=== PATIENT | male | born 1940 | race Caucasian/White ===

== ENCOUNTER → 2018-02-12 15:21 | Outpatient (CLI) | payer MEDICARE, MEDICAID, SELFPAY ==
--- NOTE | 2018-02-12 15:21 | DT_ITS ---
This patient was seen during an EMR downtime February 05, 2018 - February 12, 2018. This patient may have a combination of paper and electronic documentation or all paper documentation. All documentation is viewable within the e-chart portion of [facility] for each patient visit.
[2018-02-12 17:37] LABS: Absolute Lymphocyte Count 2.73 X10^3/ul (0.83-4.51); Absolute Neutrophil Count 3.8 X10^3/uL (2.0-7.7); Basophil# 0.04 X10^3/uL; Basophil% 0.5 % (0-1); Eosinophil# 0.17 X10^3/uL; Eosinophils% 2.2 % (0-5); Hematocrit 51.1 % (40-54); Hemoglobin 17.3 g/dl (13.0-16.5); Lymphocyte # 2.73 X10^3/ul (4.0); Lymphocyte % 35.9 % (19-41); Mean Corp Hgb Conc 33.9 g/gl (32-36); Mean Corpuscular Hgb 33.1 pg (27.0-32.0); Mean Corpuscular Volume 97.7 fL (80-94); Mean Platelet Vol. 11.1 fl (6.2-12.0); Monocyte# 0.83 X10^3/uL; Monocyte% 10.9 % (0-10); Neutrophil # 3.83 X10^3/uL (2.7-7.7); Neutrophil % 50.4 % (47-70); Platelet Count 213 K/mm3 (150-450); RBC Distribution Width CV 12.3 % (11.6-14.6); RBC Distribution Width SD 44.3 fl (35.1-43.9); Red Blood Count 5.23 M/mm3 (4.6-6.2); White Blood Count 7.6 K/mm3 (4.4-11.0)
[2018-02-12 17:42] LABS: POSITIVE COUNT NO; POSITIVE DIFFERENTIAL NO; POSITIVE MORPHOLOGY NO
[2018-02-12 17:52] LABS: Vitamin D,25 Hydroxy 12.3 ng/mL (29.95-100.01)
[2018-02-12 18:02] LABS: ALB/GLOB Ratio 0.9 RATIO (0.9-2.4); AST(SGOT) 32 U/L (15-37); Alanine Aminotransfer ALT/SGPT 35 U/L (16-61); Albumin, Serum 3.7 g/dL (3.2-5.0); Alkaline Phosphatase 94 U/L (45-117); Anion Gap 10 (5-15); BUN 14 mg/dL (7-18); BUN/Creat Ratio 15.1 RATIO (10-20); Chloride 104 mmol/L (98-107); Cholesterol 162 mg/dL (200); Creatinine, Serum 0.92 mg/dL (0.70-1.30); EST Glomerular Filtration Rate 84 mL/min (>60); Est Glom Filt Rate - Afr Amer 101 mL/min (>60); Glucose 86 mg/dL (74-106); High Density Lipoprotein 42 mg/dL; Potassium 4.2 mmol/L (3.5-5.1); Protein, Total 7.7 g/dL (6.4-8.2); Sodium Level 141 mmol/L (136-145); Thyroid Stim Hormone (TSH) 0.61 uIU/mL (0.358-3.74); Triglycerides 240 mg/dL; Very Low Density Lipoprotein 48 mg/dL (5-40)
== END ==
PROVIDERS: Family Provider Family Medicine Geriatric Medicine; PCP Family Medicine Geriatric Medicine; Visit Provider Family Medicine Geriatric Medicine
DX: E55.9 Vitamin D deficiency, unspecified (principal); E78.4 Other hyperlipidemia; R53.83 Other fatigue
CPT/HCPCS: 36415; 80053; 80061; 82306; 84443; 85025

== ENCOUNTER → 2018-02-26 15:34 | Outpatient (CLI) | payer MEDICARE, SELFPAY ==
[2018-02-26 16:38] LABS: ALB/GLOB Ratio 0.9 RATIO (0.9-2.4); AST(SGOT) 27 U/L (15-37); Alanine Aminotransfer ALT/SGPT 29 U/L (16-61); Albumin, Serum 3.7 g/dL (3.2-5.0); Alkaline Phosphatase 112 U/L (45-117); Anion Gap 7 (5-15); BUN 8 mg/dL (7-18); BUN/Creat Ratio 8.4 RATIO (10-20); Calcium,Total 9.3 mg/dL (8.5-10.1); Chloride 103 mmol/L (98-107); Creatinine, Serum 0.96 mg/dL (0.70-1.30); EST Glomerular Filtration Rate 81 mL/min (>60); Est Glom Filt Rate - Afr Amer 97 mL/min (>60); Globulin 4.3 g/dL (2.2-4.2); Glucose 88 mg/dL (74-106); Potassium 3.8 mmol/L (3.5-5.1); Sodium Level 140 mmol/L (136-145)
[2018-02-26 16:46] LABS: Absolute Lymphocyte Count 2.41 X10^3/ul (0.83-4.51); Absolute Neutrophil Count 3.9 X10^3/uL (2.0-7.7); Basophil# 0.01 X10^3/uL; Basophil% 0.1 % (0-1); Eosinophil# 0.16 X10^3/uL; Eosinophils% 2.2 % (0-5); Hematocrit 50.1 % (40-54); Lymphocyte # 2.41 X10^3/ul (4.0); Lymphocyte % 33.1 % (19-41); Mean Corp Hgb Conc 33.9 g/gl (32-36); Mean Corpuscular Hgb 33.1 pg (27.0-32.0); Mean Corpuscular Volume 97.5 fL (80-94); Mean Platelet Vol. 11.3 fl (6.2-12.0); Monocyte# 0.78 X10^3/uL; Monocyte% 10.7 % (0-10); Neutrophil % 53.8 % (47-70); RBC Distribution Width CV 12.2 % (11.6-14.6); RBC Distribution Width SD 43.3 fl (35.1-43.9); Red Blood Count 5.14 M/mm3 (4.6-6.2); White Blood Count 7.3 K/mm3 (4.4-11.0)
[2018-02-26 16:48] LABS: Differential Indicated SCAN CRITERIA MET; POSITIVE COUNT YES; POSITIVE DIFFERENTIAL NO; POSITIVE MORPHOLOGY NO
[2018-02-26 17:05] LABS: Differential Comment SCANNED; Platelet Estimate ADEQUATE (ADEQ)
== END ==
PROVIDERS: Family Provider Family Medicine Geriatric Medicine; PCP Family Medicine Geriatric Medicine; Visit Provider Family Medicine Geriatric Medicine
DX: R06.02 Shortness of breath (principal); R60.9 Edema, unspecified
CPT/HCPCS: 36415; 80053; 83880; 85025

== ENCOUNTER 2018-02-28 17:35 | Observation (INO) | payer MEDICARE, MEDICAID, SELFPAY ==
[2018-02-28 17:37] VITALS: BP 140/80; PULSE 97; RESP 16; TEMP 36.5; O2SAT 98; BMI 29.3
--- NOTE | 2018-02-28 18:06 | EKG12_ITS ---
Test Reason : CP Blood Pressure : / mmHG Vent. Rate : 089 BPM Atrial Rate : 089 BPM P-R Int : 182 ms QRS Dur : 122 ms QT Int : 374 ms P-R-T Axes : 045 -17 119 degrees QTc Int : 455 ms Sinus rhythm with occasional Premature ventricular complexes Nonspecific T wave abnormality Abnormal ECG Confirmed by LUCIE JEAN BATPISTE, AEBBE ([id number]), editor news DUSTIN IRWIN ([id number]) on 03/02/2018 9:17:58 AM Referred By: DR. ESCOBAR Confirmed By:ABEBE FAULKNER MD
--- NOTE | 2018-02-28 18:06 | RAD_ITS ---
STUDY: X-RAY CHEST REASON FOR EXAM: Male, 78 years old. Shortness of breath TECHNIQUE: Frontal view of the chest COMPARISON: None. FINDINGS: The lungs are clear. There are no pleural effusions. There is no pneumothorax. The heart is normal in size. The visualized osseous structures are within normal limits. RAD/Chest 1 View (Portable) IMPRESSION: No acute thoracic pathology. Electronically Signed: Farooq Orlando, at 18:28 EDT Tel , Service support ,
--- NOTE | 2018-02-28 18:15 | ED.DCSUM_ITS ---
- ER Visit Summary Date of Service: 02/28/18 Chief Complaint: Difficulty urinating History of Present Illness: The patient is a 78 M presenting with difficulty urinating. Patient has been having lower extremity swelling for the past 2 weeks. He was seen by his primary care physician Dr. Earl on Monday. Blood work was performed. He does not have the results of these tests yet. He was started on Lasix and potassium chloride which he started yesterday. He was advised that he would have increasing urination. Since starting the medications he has not been able to urinate completely. He states he only has dribbling when he tries to urinate. He has dyspnea on exertion and generalized weakness. He is having trouble ambulating due to the swelling in his legs. He denies chest pain. Physical Examination: Vitals are stable. Patient is afebrile. Alert no acute distress. HEENT exam is unremarkable. Neck is supple. Lungs are clear and equal bilaterally. Heart is regular rate and rhythm. Abdomen is soft suprapubic tenderness no rebound or guarding. Extremities symmetric edema Skin is warm and dry. No focal neurologic deficit. Remainder of exam is unremarkable. Emergency Department Course and Treatment: Rosado catheter placed. Chest xray shows no acute process. EKG is sinus with PVCs, lateral T-wave inversion which is changed from previous in 2008. CBC unremarkable. Chemistries show potassium 3.4, glucose 114. Urinalysis unremarkable. Troponin is 0.096. BNP 44.5. His family states that he has had significant shortness of breath with exertion. Will discuss with the hospitalist. Disposition: Observation Impression: Peripheral edema, generalized weakness, indeterminate troponin This note was generated with [employer] dictation software. It may contain incorrect words, spelling, and punctuation that were not noted in review of the chart prior to signing ED Disposition - Plan for ED Patient: Chief Complaint: Complaint Referrals: Akshat Earl Chi, MD [Primary Care Provider] -
[2018-02-28 18:36] LABS: Bacteria 0 SEEN /hpf (None Seen); Mucous, Urine 0 SEEN /hpf (<or=2+); Red Blood Cells-Urine 0 SEEN /hpf (0-5); Squamous Epithelial Cells - UA 0 SEEN /hpf (0-5); White Blood Cells 0 SEEN /hpf (0-5)
[2018-02-28 18:38] LABS: Color, Urine Yellow (Yellow); Glucose, Dipstick Normal (Normal); Ketone-Dipstick Negative (Negative); Leukocyte Esterase-Dipstick Negative /ul (Negative); Nitrite-Dipstick Negative (Negative); Occult Blood-Urine Negative /ul (Negative); Protein-Dipstick Negative (Negative); Urine Bilirubin Dipstick Negative (Negative); Urine Clarity Clear (Clear); Urine Urobilinogen Normal (Normal)
[2018-02-28 18:43] LABS: Absolute Lymphocyte Count 1.75 X10^3/ul (0.83-4.51); Absolute Neutrophil Count 2.8 X10^3/uL (2.0-7.7); Basophil# 0.01 X10^3/uL; Basophil% 0.2 % (0-1); Eosinophils% 3.7 % (0-5); Hemoglobin 14.6 g/dl (13.0-16.5); Lymphocyte # 1.75 X10^3/ul (4.0); Lymphocyte % 32.6 % (19-41); Mean Corp Hgb Conc 33.2 g/gl (32-36); Mean Corpuscular Hgb 32.2 pg (27.0-32.0); Mean Corpuscular Volume 96.9 fL (80-94); Mean Platelet Vol. 9.9 fl (6.2-12.0); Monocyte# 0.56 X10^3/uL; Monocyte% 10.4 % (0-10); Neutrophil # 2.84 X10^3/uL (2.7-7.7); Neutrophil % 52.9 % (47-70); Platelet Count 224 K/mm3 (150-450); RBC Distribution Width CV 12.1 % (11.6-14.6); RBC Distribution Width SD 42.9 fl (35.1-43.9); Red Blood Count 4.54 M/mm3 (4.6-6.2); White Blood Count 5.4 K/mm3 (4.4-11.0)
[2018-02-28 18:45] LABS: POSITIVE COUNT NO; POSITIVE DIFFERENTIAL NO; POSITIVE MORPHOLOGY NO
[2018-02-28 18:54] LABS: Anion Gap 7 (5-15); BUN 9 mg/dL (7-18); BUN/Creat Ratio 9.8 RATIO (10-20); Calcium,Total 8.5 mg/dL (8.5-10.1); Chloride 102 mmol/L (98-107); Creatinine, Serum 0.92 mg/dL (0.70-1.30); EST Glomerular Filtration Rate 85 mL/min (>60); Est Glom Filt Rate - Afr Amer 102 mL/min (>60); Estimated Creatinine Clearance 58.75 ml/min; Glucose 114 mg/dL (74-106); Potassium 3.4 mmol/L (3.5-5.1); Sodium Level 140 mmol/L (136-145)
[2018-02-28 19:01] LABS: BNP,B-Type NATRIURETIC PEPTIDE 44.5 pg/mL (0-100)
[2018-02-28 19:40] VITALS: BP 126/80; PULSE 86; RESP 20; O2SAT 97
--- NOTE | 2018-02-28 19:57 | NURSING ---
Called ED hot metal charger, okay to bring patient to floor.
[2018-02-28 20:00] VITALS: O2SAT 97
[2018-02-28 20:15] VITALS: BMI 27.0
--- NOTE | 2018-02-28 20:18 | PCM.HP.STD ---
History of Present Illness Date of Admission: 02/28/18 Chief Complaint: Decreased urine output and leg edema The patient is a 78 year old M who presented to the emergency due to inability to urinate he also reports bilateral leg edema, he saw his primary care doctor Dr. Khan 2 days ago who placed him on Lasix but he still had difficulty urinating. in the emergency room the patient was found to have urinary retention with 500cc on urinary bladder scan, a case catheter was placed. Patient denies history of urinary retention or BPH. Regarding his bilateral edema, this is mild and he denies any shortness of breath associated with that. His BNP done in the emergency room is less than 45. Past Medical History Allergies No Known Allergies Allergy (Verified 02/28/18 17:44) Home Medications: Ambulatory Orders Medication Instructions Recorded Aspirin [Aspirin, Baby] 81 mg PO DAILY 02/28/18 Furosemide [Lasix] 20 mg PO DAILY 02/28/18 Galantamine HBr [Galantamine ER] 24 mg PO DAILY 02/28/18 Multivitamin [Daily Multiple 1 tab PO DAILY 02/28/18 Vitamin] Nortriptyline HCl [Nortriptyline 50 mg PO QHS 02/28/18 HCl] Potassium Chloride [K-Dur] 10 meq PO DAILY 02/28/18 Smoking Status: Never smoker VTE Information - Inpt Only VTE Present on Admission: No VTE Mechan Device Prophylaxis: SCD's VTE Pharm Prophylaxis ordered?: No - Physical Exam General: Alert, Oriented x3 HEENT: Atraumatic Neck: Supple Lungs: Clear to auscultation Cardiovascular: Regular rate, Normal S1, Normal S2 Abdomen: Bowel Sounds Present, Soft Extremities: No edema Neurological: Cranial nerves II-XII grossly intact, Neuro grossly intact, Motor Exam 5/5 strength throughout Vital Signs Temp Pulse Resp BP Pulse Ox 97.7 F L 86 20 H 126/80 H 97 02/28/18 17:37 02/28/18 19:40 02/28/18 19:40 02/28/18 19:40 02/28/18 19:40 Weight: 76 kg Body Mass Index (BMI) 27.0 Assessment/Plan 1. Acute urinary retention; this is likely due to bladder outlet obstruction from BPH, will start him on Flomax, we will also obtain bladder and kidney ultrasound. Voiding trial in 24 hours and possibly follow-up with a urologist as an outpatient. 2. Peripheral edema; I see no evidence of congestive by heart failure by exam and his BNP is normal. Echocardiogram would however be obtained. 3. Hypokalemia; induced by recent diuretic use, will place him on oral potassium chloride. 4. indeterminate troponin; will obtain serial cardiac enzymes and go from there. Code Visit OBSV E&M: 65512 Initial observation care L2
[2018-02-28 20:24] VITALS: BMI 27.0
[2018-02-28] MEDS: Nortriptyline 25 MG Capsule 50 MG PO (22:45)
[2018-02-28 22:51] VITALS: BP 159/93; PULSE 86; RESP 18; TEMP 36.5; O2SAT 99
[2018-02-28 22:59] VITALS: PULSE 86
[2018-03-01] VITALS (11 sets, daily range): BP systolic 122–139; BP diastolic 69–84; PULSE 82–110; RESP 16–18; TEMP 36.4–37.4; O2SAT 93–97
[2018-03-01 05:51] LABS: Hematocrit 45.2 % (40-54); Hemoglobin 15.5 g/dl (13.0-16.5); Mean Corp Hgb Conc 34.3 g/gl (32-36); Mean Corpuscular Volume 96.2 fL (80-94); Mean Platelet Vol. 10.2 fl (6.2-12.0); Platelet Count 224 K/mm3 (150-450); RBC Distribution Width CV 11.9 % (11.6-14.6); RBC Distribution Width SD 41.5 fl (35.1-43.9); White Blood Count 8.6 K/mm3 (4.4-11.0)
[2018-03-01 06:07] LABS: Anion Gap 6 (5-15); BUN 8 mg/dL (7-18); BUN/Creat Ratio 11.1 RATIO (10-20); Calcium,Total 8.7 mg/dL (8.5-10.1); Chloride 106 mmol/L (98-107); Creatinine, Serum 0.72 mg/dL (0.70-1.30); EST Glomerular Filtration Rate 111 mL/min (>60); Est Glom Filt Rate - Afr Amer 135 mL/min (>60); Estimated Creatinine Clearance 54.05 ml/min; Glucose 88 mg/dL (74-106); Potassium 3.8 mmol/L (3.5-5.1); Sodium Level 141 mmol/L (136-145)
[2018-03-01 06:21] LABS: Scan Indicated on CBC? Y/N NO
--- NOTE | 2018-03-01 09:19 | ECHOD_ITS ---
Reason For Study: ELEVATED TROPONIN Procedure This was a 2D Doppler, Color Flow transthoracic echocardiogram. Exam performed portable in patient room. Left Ventricle Normal LV size. Left ventricular systolic function is normal. The estimated ejection fraction is 53 %. No evidence for diastolic dysfunction. No regional wall motion abnormalities noted. Right Ventricle Normal RV size. Normal systolic function. Atria Normal left atrium. Normal right atrium. Mitral Valve Normal mitral valve. Tricuspid Valve Normal tricuspid valve. Aortic Valve Trisinus/trileaflet aortic valve. Pulmonic Valve Normal pulmonic valve. Great Vessels Normal aortic root. The pulmonary artery is normal size. Normal inferior vena cava. Pericardium/Pleural No pericardial effusion. MMode/2D Measurements & Calculations LVIDd: 4.2 cm FS: 22.8 % Ao root diam: 3.5 cm LVIDs: 3.3 cm LA dimension: 3.7 cm LAV(MOD-bp): 44.1 ml LA A4 area: 16.1 cm2 RA A4 area: 11.0 cm2 LAV(MOD-bp) Indexed: 23.8 ml/m2 LAV(MOD-sp2): 42.0 ml LAV(MOD-sp4): 44.5 ml Doppler Measurements & Calculations Ao V2 max: 106.9 cm/sec LV V1 max: 82.0 cm/sec PA V2 max: 85.3 cm/sec Ao max P.6 mmHg LV V1 max P.7 mmHg Interpretation Summary Normal LV size. Left ventricular systolic function is normal. The estimated ejection fraction is 53 %. No evidence for diastolic dysfunction. Ordering Physician: Deven Calderon Referring Physician: Akshat Earl Chi Performed By: Lianna Sánchez, JOANNE, RVT
[2018-03-01] MEDS: Aspirin 81 MG TAB.CHEW PO (10:00)
[2018-03-01] MEDS: Galantamine Hydrobromide 4 MG Tablet 12 MG PO ×2 (10:00→21:53)
[2018-03-01] MEDS: Enoxaparin 40 MG/0.4 ML Syringe SC (10:00)
--- NOTE | 2018-03-01 11:59 | VDLE_ITS ---
Reason For Study: swelling RIGHT LEFT GSV is normal. GSV is normal. CFV is compressible, spontaneous, phasic, CFV is compressible, spontaneous, phasic, competent and demonstrates normal competent, and demonstrates normal augmentation. augmentation. FV is compressible, spontaneous, phasic, FV is compressible, spontaneous, phasic, competent and demonstrates normal competent and demonstrates normal augmentation. augmentation. POP V is compressible, spontaneous, phasic, POP V is compressible, spontaneous, phasic, competent and demonstrates normal competent and demonstrates normal augmentation. augmentation. T/P Trunk is compressible. T/P Trunk is compressible. PTV is compressible. PTV is compressible. RT PerV is compressible. LT PerV is compressible. Procedure Exam performed portable in patient room. The exam was diagnostic. A preliminary report was called and/or faxed to the pt's RN. Interpretation Summary No evidence for acute deep venous thrombosis bilateral lower extremities with patent and compressible bilateral great saphenous veins. Ordering Physician: Deven Calderon Performed By: Lenny Covington RVT
--- NOTE | 2018-03-01 13:59 | PCM.PROGNOTE ---
<Deven Calderon - Last Filed: 03/01/18 13:59> Subjective: Pt does not remember why he is hear, did not remember having urinary retention, leg edema, or a case catheter placed in the ER. He currently has no CP, SOB, LH/Dizziness, leg edema appears resolved. He is tolerating the catheter without discomfort. - Physical Exam General: Alert, Oriented x3, Cooperative HEENT: Atraumatic, PERRLA, EOMI, Normocephalic Neck: Supple, No JVD, Negative Carotid Bruits Lungs: Clear to auscultation, Normal air movement Cardiovascular: Regular rate, No murmurs Abdomen: Bowel Sounds Present, Soft, Non Tender Extremities: No edema, Capillary Refill Less than 3 Seconds Skin: No rashes, No breakdown Musculoskeletal: No Tenderness to Palpation of Joints or Extremities Neurological: Cranial nerves II-XII grossly intact Psych/Mental Status: Normal Affect, Appropriate Vital Signs Temp Pulse Resp BP Pulse Ox 97.7 F L 82 18 135/82 H 93 03/01/18 09:47 03/01/18 11:22 03/01/18 09:47 03/01/18 09:47 03/01/18 09:47 Oxygen Delivery Method Room Air Weight: 76 kg Body Mass Index (BMI) 27.0 Intake and Output for Last 24 Hours 02/27/18 02/28/18 03/01/18 23:59 23:59 23:59 Intake Total 500 / 500 Output Total 1250 / 1250 750 / 750 Balance -1250 / -1250 -250 / -250 Laboratory Tests Past 24 Hrs 02/28/18 03/01/18 03/01/18 21:16 00:24 05:15 WBC RBC Hgb Hct MCV MCH MCHC RDW RDW Differential Plt Count MPV Sodium 141 Potassium 3.8 Chloride 106 Carbon Dioxide 29.0 Anion Gap 6 BUN 8 Creatinine 0.72 Estim Creat Clear Calc 54.05 Est GFR (MDRD) Af Amer 135 Est GFR (MDRD) Non-Af 111 BUN/Creatinine Ratio 11.1 Glucose 88 Calcium 8.7 Troponin I 0.097 H 0.102 H 03/01/18 05:15 WBC 8.6 RBC 4.70 Hgb 15.5 Hct 45.2 MCV 96.2 H MCH 33.0 H MCHC 34.3 RDW 11.9 RDW Differential 41.5 Plt Count 224 MPV 10.2 Sodium Potassium Chloride Carbon Dioxide Anion Gap BUN Creatinine Estim Creat Clear Calc Est GFR (MDRD) Af Amer Est GFR (MDRD) Non-Af BUN/Creatinine Ratio Glucose Calcium Troponin I Medical Necessity - Tobacco Use Smoking Status: Never smoker Tobacco Use: Chew Assessment/Plan 1. Acute urinary retention likely 2/2 BPH. flomax started. outpatient urology follow up. Will do voiding trial. Leg edema is resolved. BNP neg. lasix discontinued. 2. Indeterminate troponin - no CP/SOB. Peak at 0.102. Echo pending. Continue aspirin. CXR. EKG with nonspecific t wave changes. No events on tele. 3. Hypokalemia resolved 4. Dementia - continue galantamine. pt very confused. DVT ppx: lovenox DC planning: pending results of echo. if changes may need further cardiac workup This patient was seen by Deven Calderon PA-C under the supervision of Doctor Vanessa. <Oliver Mendez - Last Filed: 03/01/18 15:18> - Physical Exam General: Alert, Cooperative HEENT: Atraumatic, Normocephalic Lungs: Clear to auscultation, Normal air movement Cardiovascular: Regular rate, Regular Rhythm, Normal S1, Normal S2 Abdomen: Bowel Sounds Present, Soft, Non Tender, Non-Distended Extremities: No edema, No Calf Tenderness Skin: No rashes, No breakdown Psych/Mental Status: Normal Affect, Appropriate Vital Signs Temp Pulse Resp BP Pulse Ox 36.5 C L 82 18 135/82 H 93 03/01/18 09:47 03/01/18 11:22 03/01/18 09:47 03/01/18 09:47 03/01/18 09:47 Oxygen Delivery Method Room Air Weight: 76 kg Body Mass Index (BMI) 27.0 Intake and Output for Last 24 Hours 02/27/18 02/28/18 03/01/18 23:59 23:59 23:59 Intake Total 500 / 500 Output Total 1250 / 1250 750 / 750 Balance -1250 / -1250 -250 / -250 Laboratory Tests Past 24 Hrs 02/28/18 03/01/18 03/01/18 21:16 00:24 05:15 WBC RBC Hgb Hct MCV MCH MCHC RDW RDW Differential Plt Count MPV Sodium 141 Potassium 3.8 Chloride 106 Carbon Dioxide 29.0 Anion Gap 6 BUN 8 Creatinine 0.72 Estim Creat Clear Calc 54.05 Est GFR (MDRD) Af Amer 135 Est GFR (MDRD) Non-Af 111 BUN/Creatinine Ratio 11.1 Glucose 88 Calcium 8.7 Troponin I 0.097 H 0.102 H 03/01/18 05:15 WBC 8.6 RBC 4.70 Hgb 15.5 Hct 45.2 MCV 96.2 H MCH 33.0 H MCHC 34.3 RDW 11.9 RDW Differential 41.5 Plt Count 224 MPV 10.2 Sodium Potassium Chloride Carbon Dioxide Anion Gap BUN Creatinine Estim Creat Clear Calc Est GFR (MDRD) Af Amer Est GFR (MDRD) Non-Af BUN/Creatinine Ratio Glucose Calcium Troponin I Assessment/Plan Patient seen and examined independently. Data reviewed. I agree with the above note by the physician floral assistant. 1. Urinary retention: Likely due to BPH. . Started on Flomax Follow-up voiding trial and see if catheter can be removed. If catheter has to be replaced then would have the patient follow-up with urology down the road for attempting to remove it at a later point. 2. Elevated troponin Patient was without cardiac symptoms, therefore, I do not know why it was ever checked in the first place without any clear indication No prior troponins to compare to see if patient has chronically elevated troponins Check an echocardiogram and if evidence of cardiac dysfunction then may need to consult cardiology or perform stress test. Patient is on aspirin. Code Visit Inpatient E&M: 15379 Subs Hosp L2
--- NOTE | 2018-03-01 14:03 | PN_ITS ---
<Deven Calderon - Last Filed: 03/01/18 13:59> Subjective: Pt does not remember why he is hear, did not remember having urinary retention, leg edema, or a case catheter placed in the ER. He currently has no CP, SOB, LH /Dizziness, leg edema appears resolved. He is tolerating the catheter without discomfort. - Physical Exam General: Alert, Oriented x3, Cooperative HEENT: Atraumatic, PERRLA, EOMI, Normocephalic Neck: Supple, No JVD, Negative Carotid Bruits Lungs: Clear to auscultation, Normal air movement Cardiovascular: Regular rate, No murmurs Abdomen: Bowel Sounds Present, Soft, Non Tender Extremities: No edema, Capillary Refill Less than 3 Seconds Skin: No rashes, No breakdown Musculoskeletal: No Tenderness to Palpation of Joints or Extremities Neurological: Cranial nerves II-XII grossly intact Psych/Mental Status: Normal Affect, Appropriate Vital Signs Temp Pulse Resp BP Pulse Ox 97.7 F L 82 18 135/82 H 93 03/01/18 09:47 03/01/18 11:22 03/01/18 09:47 03/01/18 09:47 03/01/18 09:47 Oxygen Delivery Method Room Air Weight: 76 kg Body Mass Index (BMI) 27.0 Intake and Output for Last 24 Hours 02/27/18 02/28/18 03/01/18 23:59 23:59 23:59 Intake Total 500 / 500 Output Total 1250 / 1250 750 / 750 Balance -1250 / -1250 -250 / -250 Laboratory Tests Past 24 Hrs 02/28/18 03/01/18 03/01/18 21:16 00:24 05:15 WBC RBC Hgb Hct MCV MCH MCHC RDW RDW Differential Plt Count MPV Sodium 141 Potassium 3.8 Chloride 106 Carbon Dioxide 29.0 Anion Gap 6 BUN 8 Creatinine 0.72 Estim Creat Clear Calc 54.05 Est GFR (MDRD) Af Amer 135 Est GFR (MDRD) Non-Af 111 BUN/Creatinine Ratio 11.1 Glucose 88 Calcium 8.7 Troponin I 0.097 H 0.102 H 03/01/18 05:15 WBC 8.6 RBC 4.70 Hgb 15.5 Hct 45.2 MCV 96.2 H MCH 33.0 H MCHC 34.3 RDW 11.9 RDW Differential 41.5 Plt Count 224 MPV 10.2 Sodium Potassium Chloride Carbon Dioxide Anion Gap BUN Creatinine Estim Creat Clear Calc Est GFR (MDRD) Af Amer Est GFR (MDRD) Non-Af BUN/Creatinine Ratio Glucose Calcium Troponin I Medical Necessity - Tobacco Use Smoking Status: Never smoker Tobacco Use: Chew Assessment/Plan 1. Acute urinary retention likely 2/2 BPH. flomax started. outpatient urology follow up. Will do voiding trial. Leg edema is resolved. BNP neg. lasix discontinued. 2. Indeterminate troponin - no CP/SOB. Peak at 0.102. Echo pending. Continue aspirin. CXR. EKG with nonspecific t wave changes. No events on tele. 3. Hypokalemia resolved 4. Dementia - continue galantamine. pt very confused. DVT ppx: lovenox DC planning: pending results of echo. if changes may need further cardiac workup This patient was seen by Deven Calderon PA-C under the supervision of Doctor Vanessa. <Oliver Mendez - Last Filed: 03/01/18 15:18> - Physical Exam General: Alert, Cooperative HEENT: Atraumatic, Normocephalic Lungs: Clear to auscultation, Normal air movement Cardiovascular: Regular rate, Regular Rhythm, Normal S1, Normal S2 Abdomen: Bowel Sounds Present, Soft, Non Tender, Non-Distended Extremities: No edema, No Calf Tenderness Skin: No rashes, No breakdown Psych/Mental Status: Normal Affect, Appropriate Vital Signs Temp Pulse Resp BP Pulse Ox 36.5 C L 82 18 135/82 H 93 03/01/18 09:47 03/01/18 11:22 03/01/18 09:47 03/01/18 09:47 03/01/18 09:47 Oxygen Delivery Method Room Air Weight: 76 kg Body Mass Index (BMI) 27.0 Intake and Output for Last 24 Hours 02/27/18 02/28/18 03/01/18 23:59 23:59 23:59 Intake Total 500 / 500 Output Total 1250 / 1250 750 / 750 Balance -1250 / -1250 -250 / -250 Laboratory Tests Past 24 Hrs 02/28/18 03/01/18 03/01/18 21:16 00:24 05:15 WBC RBC Hgb Hct MCV MCH MCHC RDW RDW Differential Plt Count MPV Sodium 141 Potassium 3.8 Chloride 106 Carbon Dioxide 29.0 Anion Gap 6 BUN 8 Creatinine 0.72 Estim Creat Clear Calc 54.05 Est GFR (MDRD) Af Amer 135 Est GFR (MDRD) Non-Af 111 BUN/Creatinine Ratio 11.1 Glucose 88 Calcium 8.7 Troponin I 0.097 H 0.102 H 03/01/18 05:15 WBC 8.6 RBC 4.70 Hgb 15.5 Hct 45.2 MCV 96.2 H MCH 33.0 H MCHC 34.3 RDW 11.9 RDW Differential 41.5 Plt Count 224 MPV 10.2 Sodium Potassium Chloride Carbon Dioxide Anion Gap BUN Creatinine Estim Creat Clear Calc Est GFR (MDRD) Af Amer Est GFR (MDRD) Non-Af BUN/Creatinine Ratio Glucose Calcium Troponin I Assessment/Plan Patient seen and examined independently. Data reviewed. I agree with the above note by the physician agency sales management assistant. 1. Urinary retention: * Likely due to BPH. * . Started on Flomax * Follow-up voiding trial and see if catheter can be removed. If catheter has to be replaced then would have the patient follow-up with urology down the road for attempting to remove it at a later point. 2. Elevated troponin * Patient was without cardiac symptoms, therefore, I do not know why it was ever checked in the first place without any clear indication * No prior troponins to compare to see if patient has chronically elevated troponins * Check an echocardiogram and if evidence of cardiac dysfunction then may need to consult cardiology or perform stress test. * Patient is on aspirin. Code Visit Inpatient E&M: 23269 Subs Hosp L2
--- NOTE | 2018-03-01 16:49 | CHAPLAIN ---
Type of Pastoral Visit _x__ Initial Visit ___ Follow-up Visit ___ On-call Visit ___ General Patient Visit ___ Spiritual Assessment ___ Family Conference ___ Bereavement ___ Rapid Response ___ Code Blue ___ Other (describe below) Pastoral Care Referral From _x__ Patient ___ Family ___ Nurse ___ Physician ___ Block Chopper Hand ___ Eddy Current Inspector ___ Other (describe below) Sacrament/Intervention _x__ Active listening ___ Anointing ___ Adventism ___ Bereavement ___ Communion _x__ Eleni exploration ___ _x__ Life review ___ Prayer ___ Reconciliation ___ Sacrament of Sick __x_ Supportive presence ___ Wedding ___ Other (describe below) Pastoral Comments
[2018-03-01] MEDS: Tamsulosin HCl 0.4 MG Capsule PO (17:29)
--- NOTE | 2018-03-01 20:00 | EKG12_ITS ---
Test Reason : AM EKG Blood Pressure : / mmHG Vent. Rate : 096 BPM Atrial Rate : 096 BPM P-R Int : 186 ms QRS Dur : 124 ms QT Int : 366 ms P-R-T Axes : 035 -12 074 degrees QTc Int : 462 ms Normal sinus rhythm Nonspecific T wave abnormality Abnormal ECG When compared with ECG of 28-FEB-2018 18:43, MANUAL COMPARISON REQUIRED, DATA IS UNCONFIRMED Confirmed by LUCIE JEAN BAPTISTE, ABEBE ([id number]), video effects editor DUSTIN IRWIN ([id number]) on 03/02/2018 10:05:58 AM Referred By: DR ORTEGA Confirmed By:ABEBE FAULKNER MD
[2018-03-01] MEDS: Nortriptyline 25 MG Capsule 50 MG PO (21:53)
[2018-03-02] VITALS (12 sets, daily range): BP systolic 101–123; BP diastolic 58–69; PULSE 62–122; RESP 14–20; TEMP 36.6–37.2; O2SAT 92–96
[2018-03-02 06:22] LABS: Anion Gap 6 (5-15); BUN 15 mg/dL (7-18); BUN/Creat Ratio 18.1 RATIO (10-20); Calcium,Total 8.7 mg/dL (8.5-10.1); Chloride 105 mmol/L (98-107); Creatinine, Serum 0.83 mg/dL (0.70-1.30); EST Glomerular Filtration Rate 95 mL/min (>60); Est Glom Filt Rate - Afr Amer 115 mL/min (>60); Estimated Creatinine Clearance 65.12 ml/min; Glucose 104 mg/dL (74-106); Sodium Level 140 mmol/L (136-145)
[2018-03-02] MEDS: Galantamine Hydrobromide 4 MG Tablet 12 MG PO ×2 (10:05→22:53)
[2018-03-02] MEDS: Aspirin 81 MG TAB.CHEW PO (10:05)
[2018-03-02] MEDS: Enoxaparin 40 MG/0.4 ML Syringe SC (10:06)
--- NOTE | 2018-03-02 11:45 | CASEMGMT ---
VISHAL FARR NOTE: Discussed ROJAS form with pt. Signed copy given to pt. Offered to speak with who is not available at this time. Pt stated he would give his the ROJAS form when she comes in. If questions arise, contact CHIKA. Ulisses DALE RN, CM
--- NOTE | 2018-03-02 12:02 | CASEMGMT ---
PERRY spoke with patient, his , introduced self and role at [facility]. PERRY explained that therapy recommended he go somewhere for rehab or we could set up home health. Patient's said he is not going anywhere for rehab and they are not going to do home health because they can't afford it. She said they won't be able to afford this hospital stay. PERRY told her that his insurance will cover some of his stay. She said he is coded as outpatient so she will get stuck with the majority of the bill. The physician then walked into the room and PERRY stepped out. Plan: home with family Glo Ronda HALL
--- NOTE | 2018-03-02 13:03 | PCM.PN.HOSP ---
Subjective: states he is urinating, but not that well. Daughter is concerned that he is not seeing urology here and no answers about his feet swelling. Vitals/I&O's: Vital Signs Temp Pulse Resp BP Pulse Ox 36.6 C 122 H 20 H 123/69 H 92 03/02/18 09:51 03/02/18 11:19 03/02/18 09:51 03/02/18 09:51 03/02/18 09:51 Oxygen Delivery Method Room Air Weight: 76 kg Body Mass Index (BMI) 27.0 Intake and Output for Last 24 Hours 02/28/18 03/01/18 03/02/18 23:59 23:59 23:59 Intake Total 925 / 925 Output Total 1250 / 1250 1025 / 1025 220 / 220 Balance -1250 / -1250 -100 / -100 -220 / -220 General: Alert, No apparent distress HEENT: Atraumatic, Normocephalic Oral: Moist Mucosa Neck: No Nodes, Thyroid Normal Size and Texture Lungs: Clear to auscultation, Normal air movement, No rhonchi, No wheeze Cardiovascular: Regular rate, Regular Rhythm, Normal S1, Normal S2, No murmurs Abdomen: Bowel Sounds Present, Soft, Non Tender, Non-Distended Extremities: No Calf Tenderness, Edema - in feet, non-pitting. Psych/Mental Status: Flat Affect Laboratory Results 03/01/18 05:15: Sodium 141, Potassium 3.8, Chloride 106, Carbon Dioxide 29.0, Anion Gap 6, BUN 8, Creatinine 0.72, Estim Creat Clear Calc 54.05, Est GFR (MDRD) Af Amer 135, Est GFR (MDRD) Non-Af 111, BUN/Creatinine Ratio 11.1, Glucose 88, Calcium 8.7, Total Bilirubin Cancelled, AST Cancelled, ALT Cancelled, Alkaline Phosphatase Cancelled, Total Protein Cancelled, Albumin Cancelled, Globulin Cancelled, Albumin/Globulin Ratio Cancelled 03/02/18 05:35: Sodium 140, Potassium 4.0, Chloride 105, Carbon Dioxide 29.0, Anion Gap 6, BUN 15, Creatinine 0.83, Estim Creat Clear Calc 65.12, Est GFR (MDRD) Af Amer 115, Est GFR (MDRD) Non-Af 95, BUN/Creatinine Ratio 18.1, Glucose 104, Calcium 8.7, Total Bilirubin Pending, AST Pending, ALT Pending, Alkaline Phosphatase Pending, Total Protein Pending, Albumin Pending Current Medications Aspirin (Aspirin, Baby) 81 mg PO DAILYCM [facility] Last Admin: 03/02/18 10:05 Dose: 81 mg Enoxaparin Sodium (Lovenox) 40 mg SC DAILY@1000 [facility] Last Admin: 03/02/18 10:06 Dose: 40 mg Galantamine Hydrobromide (Razadyne) 12 mg PO BID [facility] Last Admin: 03/02/18 10:05 Dose: 12 mg Sodium Chloride () 250 mls @ 15 mls/hr IV .[id number] PRN PRN Reason: SALINE FLUSH Magnesium Hydroxide (Milk Of Magnesia) 30 ml PO DAILY PRN PRN PRN Reason: Constipation Nortriptyline HCl (Pamelor) 50 mg PO QHS [facility] Last Admin: 03/01/18 21:53 Dose: 50 mg Nutritional Formula (Lactose Free) (Ensure Enlive) 120 ml PO 4X/DAY [facility] Last Admin: 03/02/18 10:06 Dose: Not Given Sodium Chloride () 5 - 30 ml IV UD PRN PRN Reason: SALINE FLUSH Tamsulosin HCl (Flomax) 0.4 mg PO DAILY@1730 [facility] Last Admin: 03/01/18 17:29 Dose: 0.4 mg Medical Necessity - Tobacco Use Smoking Status: Never smoker Tobacco Use: Chew Assessment/Plan 1. Urinary retention: Likely due to BPH. Started on Flomax If catheter needs to be replaced, then patient will need to follow up with urology as outpt. 2. Elevated troponin Patient was without cardiac symptoms, therefore, I do not know why it was ever checked in the first place without any clear indication No prior troponins to compare to see if patient has chronically elevated troponins Check an echocardiogram and if evidence of cardiac dysfunction then may need to consult cardiology or perform stress test. Patient is on aspirin. Echo shows EF of 53% check stress test on ASA 3. Lower extremity edema Duplex negative involves only his feet check ABIs check albumin 4. Tachycardia appears sinus start metoprolol 5. DVT proph Lovenox Family at bedside. One woman (perhaps daughter) was quite belligerent demanding to know answers and saying she is not being told answers even as I tell her answers. Demands to have urology see him here. I informed her that in the absence of surgical necessity, urology can follow up as outpt--if needed. Code Visit Inpatient E&M: 21560 Subs Hosp L2
[2018-03-02 13:07] LABS: ALB/GLOB Ratio 0.7 RATIO (0.9-2.4); AST(SGOT) 26 U/L (15-37); Alanine Aminotransfer ALT/SGPT 21 U/L (16-61); Albumin, Serum 2.8 g/dL (3.2-5.0); Alkaline Phosphatase 102 U/L (45-117); Globulin 3.8 g/dL (2.2-4.2); Protein, Total 6.6 g/dL (6.4-8.2)
--- NOTE | 2018-03-02 13:13 | PN_ITS ---
Subjective: states he is urinating, but not that well. Daughter is concerned that he is not seeing urology here and no answers about his feet swelling. Vitals/I&O's: Vital Signs Temp Pulse Resp BP Pulse Ox 36.6 C 122 H 20 H 123/69 H 92 03/02/18 09:51 03/02/18 11:19 03/02/18 09:51 03/02/18 09:51 03/02/18 09:51 Oxygen Delivery Method Room Air Weight: 76 kg Body Mass Index (BMI) 27.0 Intake and Output for Last 24 Hours 02/28/18 03/01/18 03/02/18 23:59 23:59 23:59 Intake Total 925 / 925 Output Total 1250 / 1250 1025 / 1025 220 / 220 Balance -1250 / -1250 -100 / -100 -220 / -220 General: Alert, No apparent distress HEENT: Atraumatic, Normocephalic Oral: Moist Mucosa Neck: No Nodes, Thyroid Normal Size and Texture Lungs: Clear to auscultation, Normal air movement, No rhonchi, No wheeze Cardiovascular: Regular rate, Regular Rhythm, Normal S1, Normal S2, No murmurs Abdomen: Bowel Sounds Present, Soft, Non Tender, Non-Distended Extremities: No Calf Tenderness, Edema - in feet, non-pitting. Psych/Mental Status: Flat Affect Laboratory Results 03/01/18 05:15: Sodium 141, Potassium 3.8, Chloride 106, Carbon Dioxide 29.0, Anion Gap 6, BUN 8, Creatinine 0.72, Estim Creat Clear Calc 54.05, Est GFR (MDRD ) Af Amer 135, Est GFR (MDRD) Non-Af 111, BUN/Creatinine Ratio 11.1, Glucose 88 , Calcium 8.7, Total Bilirubin Cancelled, AST Cancelled, ALT Cancelled, Alkaline Phosphatase Cancelled, Total Protein Cancelled, Albumin Cancelled, Globulin Cancelled, Albumin/Globulin Ratio Cancelled 03/02/18 05:35: Sodium 140, Potassium 4.0, Chloride 105, Carbon Dioxide 29.0, Anion Gap 6, BUN 15, Creatinine 0.83, Estim Creat Clear Calc 65.12, Est GFR ( MDRD) Af Amer 115, Est GFR (MDRD) Non-Af 95, BUN/Creatinine Ratio 18.1, Glucose 104, Calcium 8.7, Total Bilirubin Pending, AST Pending, ALT Pending, Alkaline Phosphatase Pending, Total Protein Pending, Albumin Pending Current Medications Aspirin (Aspirin, Baby) 81 mg PO DAILYCM [facility] Last Admin: 03/02/18 10:05 Dose: 81 mg Enoxaparin Sodium (Lovenox) 40 mg SC DAILY@1000 [facility] Last Admin: 03/02/18 10:06 Dose: 40 mg Galantamine Hydrobromide (Razadyne) 12 mg PO BID [facility] Last Admin: 03/02/18 10:05 Dose: 12 mg Sodium Chloride () 250 mls @ 15 mls/hr IV .[id number] PRN PRN Reason: SALINE FLUSH Magnesium Hydroxide (Milk Of Magnesia) 30 ml PO DAILY PRN PRN PRN Reason: Constipation Nortriptyline HCl (Pamelor) 50 mg PO QHS [facility] Last Admin: 03/01/18 21:53 Dose: 50 mg Nutritional Formula (Lactose Free) (Ensure Enlive) 120 ml PO 4X/DAY [facility] Last Admin: 03/02/18 10:06 Dose: Not Given Sodium Chloride () 5 - 30 ml IV UD PRN PRN Reason: SALINE FLUSH Tamsulosin HCl (Flomax) 0.4 mg PO DAILY@1730 [facility] Last Admin: 03/01/18 17:29 Dose: 0.4 mg Medical Necessity - Tobacco Use Smoking Status: Never smoker Tobacco Use: Chew Assessment/Plan 1. Urinary retention: * Likely due to BPH. * Started on Flomax * If catheter needs to be replaced, then patient will need to follow up with urology as outpt. 2. Elevated troponin * Patient was without cardiac symptoms, therefore, I do not know why it was ever checked in the first place without any clear indication * No prior troponins to compare to see if patient has chronically elevated troponins * Check an echocardiogram and if evidence of cardiac dysfunction then may need to consult cardiology or perform stress test. * Patient is on aspirin. * Echo shows EF of 53% * check stress test * on ASA 3. Lower extremity edema * Duplex negative * involves only his feet * check ABIs * check albumin 4. Tachycardia * appears sinus * start metoprolol 5. DVT proph * Lovenox Family at bedside. One woman (perhaps daughter) was quite belligerent demanding to know answers and saying she is not being told answers even as I tell her answers. Demands to have urology see him here. I informed her that in the absence of surgical necessity, urology can follow up as outpt--if needed. Code Visit Inpatient E&M: 11662 Subs Hosp L2
[2018-03-02] MEDS: Metoprolol Tartrate 50 MG Tablet PO (13:44)
--- NOTE | 2018-03-02 19:04 | LEAS ---
Arterial Study - Arterial Study Arterial Study: Bilateral lower extremity noninvasive arterial exam at rest Right lower extremity The right PT and DP ankle-brachial indices at rest are 1.07 and 0.88 respectively. Doppler waveforms are biphasic. Volume pulse recordings not performed. Left lower extremity PT and DP ankle-brachial indices at rest are 1.22 and 1.07 respectively with a triphasic left posterior tibial and dorsalis pedis waveforms. Impression Right lower extremity demonstrates a normal PT resting ankle brachial index however Doppler waveforms are biphasic throughout both the right posterior tibial and dorsalis pedis suggesting at least a mild amount of occlusive disease. These findings would not be consistent with critical ischemia. The left lower extremity demonstrates normal resting indices and waveforms consistent with a normal finding. Lennox Hernandez M.D., F.A.C.S.
[2018-03-02] MEDS: Tamsulosin HCl 0.4 MG Capsule PO (19:25)
[2018-03-02] MEDS: Nortriptyline 25 MG Capsule 50 MG PO (22:53)
[2018-03-03] VITALS (8 sets, daily range): BP systolic 98–108; BP diastolic 62–72; PULSE 75–87; RESP 16–18; TEMP 36.7–37; O2SAT 93–97
--- NOTE | 2018-03-03 04:00 | NURSING ---
Pts called around 0145 this morning and told us that she was refusing to let her get the stress test done today. She was very sure about him not getting it done. Talked to MD about what she had said, since she is not her POA then he has to be the one to say he dosn't want it. Went in and talked to the pt about what he wants done, informed him of the benifits and he still decided he did not want the stress test done. Cancelled the stress test at this time.
[2018-03-03 06:06] LABS: Hematocrit 41.9 % (40-54); Hemoglobin 13.8 g/dl (13.0-16.5); Mean Corp Hgb Conc 32.9 g/gl (32-36); Mean Corpuscular Volume 97.2 fL (80-94); Mean Platelet Vol. 10.5 fl (6.2-12.0); Platelet Count 211 K/mm3 (150-450); RBC Distribution Width CV 11.9 % (11.6-14.6); RBC Distribution Width SD 42.6 fl (35.1-43.9); Red Blood Count 4.31 M/mm3 (4.6-6.2); White Blood Count 7.3 K/mm3 (4.4-11.0)
[2018-03-03 06:07] LABS: Scan Indicated on CBC? Y/N NO
[2018-03-03 06:23] LABS: Anion Gap 8 (5-15); BUN 16 mg/dL (7-18); BUN/Creat Ratio 19.5 RATIO (10-20); Calcium,Total 8.4 mg/dL (8.5-10.1); Chloride 106 mmol/L (98-107); Creatinine, Serum 0.82 mg/dL (0.70-1.30); EST Glomerular Filtration Rate 96 mL/min (>60); Est Glom Filt Rate - Afr Amer 117 mL/min (>60); Estimated Creatinine Clearance 65.92 ml/min; Glucose 116 mg/dL (74-106); Potassium 3.8 mmol/L (3.5-5.1); Sodium Level 142 mmol/L (136-145)
[2018-03-03] MEDS: Aspirin 81 MG TAB.CHEW PO (09:53)
[2018-03-03] MEDS: Galantamine Hydrobromide 4 MG Tablet 12 MG PO (09:53)
[2018-03-03] MEDS: Metoprolol Tartrate 50 MG Tablet PO (09:53)
--- NOTE | 2018-03-03 10:44 | PCM.PN.HOSP ---
Patient Problems: Active and Suspected Problems Urinary retention (Acute) Subjective: No new complaints. Vitals/I&O's: Vital Signs Temp Pulse Resp BP Pulse Ox 37.0 C 87 18 108/72 97 03/03/18 09:51 03/03/18 09:53 03/03/18 09:51 03/03/18 09:51 03/03/18 09:51 Oxygen Delivery Method Room Air Weight: 76 kg Body Mass Index (BMI) 27.0 Intake and Output for Last 24 Hours 03/01/18 03/02/18 03/03/18 23:59 23:59 23:59 Intake Total 925 / 925 240 / 240 Output Total 1025 / 1025 520 / 520 840 / 840 Balance -100 / -100 -280 / -280 -840 / -840 General: Alert, No apparent distress HEENT: Atraumatic, Normocephalic Oral: Moist Mucosa, No Gingival or Mucosal Lesions/ Ulcerations Neck: No Nodes, Thyroid Normal Size and Texture Lungs: Clear to auscultation, Normal air movement, No rhonchi, No wheeze Cardiovascular: Regular rate, Regular Rhythm, Normal S1, Normal S2, No murmurs Abdomen: Bowel Sounds Present, Soft, Non Tender, Non-Distended, No Hepato-splenomegaly Extremities: Edema - feet., - - DEVIN hose on Skin: No rashes, No breakdown Psych/Mental Status: Normal Affect, Appropriate Laboratory Results 03/01/18 05:15: Sodium 141, Potassium 3.8, Chloride 106, Carbon Dioxide 29.0, Anion Gap 6, BUN 8, Creatinine 0.72, Estim Creat Clear Calc 54.05, Est GFR (MDRD) Af Amer 135, Est GFR (MDRD) Non-Af 111, BUN/Creatinine Ratio 11.1, Glucose 88, Calcium 8.7, Total Bilirubin Cancelled, AST Cancelled, ALT Cancelled, Alkaline Phosphatase Cancelled, Total Protein Cancelled, Albumin Cancelled, Globulin Cancelled, Albumin/Globulin Ratio Cancelled 03/02/18 05:35: Sodium 140, Potassium 4.0, Chloride 105, Carbon Dioxide 29.0, Anion Gap 6, BUN 15, Creatinine 0.83, Estim Creat Clear Calc 65.12, Est GFR (MDRD) Af Amer 115, Est GFR (MDRD) Non-Af 95, BUN/Creatinine Ratio 18.1, Glucose 104, Calcium 8.7, Total Bilirubin 0.40, AST 26, ALT 21, Alkaline Phosphatase 102, Total Protein 6.6, Albumin 2.8 L, Globulin 3.8, Albumin/Globulin Ratio 0.7 L 03/03/18 05:15: Sodium 142, Potassium 3.8, Chloride 106, Carbon Dioxide 28.0, Anion Gap 8, BUN 16, Creatinine 0.82, Estim Creat Clear Calc 65.92, Est GFR (MDRD) Af Amer 117, Est GFR (MDRD) Non-Af 96, BUN/Creatinine Ratio 19.5, Glucose 116 H, Calcium 8.4 L 03/03/18 05:15: WBC 7.3, RBC 4.31 L, Hgb 13.8, Hct 41.9, MCV 97.2 H, MCH 32.0, MCHC 32.9, RDW 11.9, RDW Differential 42.6, Plt Count 211, MPV 10.5 03/03/18 05:15: PT 13.0, INR 1.0, APTT 33.0 Current Medications Aspirin (Aspirin, Baby) 81 mg PO DAILYCM [facility] Last Admin: 03/03/18 09:53 Dose: 81 mg Enoxaparin Sodium (Lovenox) 40 mg SC DAILY@1000 [facility] Last Admin: 03/03/18 09:55 Dose: Not Given Galantamine Hydrobromide (Razadyne) 12 mg PO BID [facility] Last Admin: 03/03/18 09:53 Dose: 12 mg Sodium Chloride () 250 mls @ 15 mls/hr IV .[id number] PRN PRN Reason: SALINE FLUSH Magnesium Hydroxide (Milk Of Magnesia) 30 ml PO DAILY PRN PRN PRN Reason: Constipation Metoprolol Tartrate (Lopressor (Beta Pattie)) 50 mg PO DAILY [facility] Last Admin: 03/03/18 09:53 Dose: 50 mg Nortriptyline HCl (Pamelor) 50 mg PO QHS [facility] Last Admin: 03/02/18 22:53 Dose: 50 mg Nutritional Formula (Lactose Free) (Ensure Enlive) 120 ml PO 4X/DAY [facility] Last Admin: 03/03/18 09:57 Dose: 120 ml Sodium Chloride () 5 - 30 ml IV UD PRN PRN Reason: SALINE FLUSH Tamsulosin HCl (Flomax) 0.4 mg PO DAILY@1730 [facility] Last Admin: 03/02/18 19:25 Dose: 0.4 mg Medical Necessity - Tobacco Use Smoking Status: Never smoker Tobacco Use: Chew Assessment/Plan All Active Problems Urinary retention (Acute) 1. Urinary retention: Likely due to BPH. Started on Flomax states he urinating very well. follow up with urology in 1-2 months. 2. Elevated troponin Patient was without cardiac symptoms, therefore, I do not know why it was ever checked in the first place without any clear indication No prior troponins to compare to see if patient has chronically elevated troponins Check an echocardiogram and if evidence of cardiac dysfunction then may need to consult cardiology or perform stress test. Patient is on aspirin. Echo shows EF of 53% patient and his declined stress test I told him I would like to know if he does have CAD with the stress, as if he does, it could lead to additional testing. He continues to decline and understands the risks 3. Lower extremity edema Duplex negative involves only his feet ABIs ok albumin low recommend supplements and keeping feet up when at rest (has dependent rubor) 4. Tachycardia appears sinus improved. DC home. Pt and family do not want rehab nor HHC.
--- NOTE | 2018-03-03 11:11 | PN_ITS ---
Patient Problems: Active and Suspected Problems Urinary retention (Acute) Subjective: No new complaints. Vitals/I&O's: Vital Signs Temp Pulse Resp BP Pulse Ox 37.0 C 87 18 108/72 97 03/03/18 09:51 03/03/18 09:53 03/03/18 09:51 03/03/18 09:51 03/03/18 09:51 Oxygen Delivery Method Room Air Weight: 76 kg Body Mass Index (BMI) 27.0 Intake and Output for Last 24 Hours 03/01/18 03/02/18 03/03/18 23:59 23:59 23:59 Intake Total 925 / 925 240 / 240 Output Total 1025 / 1025 520 / 520 840 / 840 Balance -100 / -100 -280 / -280 -840 / -840 General: Alert, No apparent distress HEENT: Atraumatic, Normocephalic Oral: Moist Mucosa, No Gingival or Mucosal Lesions/ Ulcerations Neck: No Nodes, Thyroid Normal Size and Texture Lungs: Clear to auscultation, Normal air movement, No rhonchi, No wheeze Cardiovascular: Regular rate, Regular Rhythm, Normal S1, Normal S2, No murmurs Abdomen: Bowel Sounds Present, Soft, Non Tender, Non-Distended, No Hepato- splenomegaly Extremities: Edema - feet., - - DEVIN hose on Skin: No rashes, No breakdown Psych/Mental Status: Normal Affect, Appropriate Laboratory Results 03/01/18 05:15: Sodium 141, Potassium 3.8, Chloride 106, Carbon Dioxide 29.0, Anion Gap 6, BUN 8, Creatinine 0.72, Estim Creat Clear Calc 54.05, Est GFR (MDRD ) Af Amer 135, Est GFR (MDRD) Non-Af 111, BUN/Creatinine Ratio 11.1, Glucose 88 , Calcium 8.7, Total Bilirubin Cancelled, AST Cancelled, ALT Cancelled, Alkaline Phosphatase Cancelled, Total Protein Cancelled, Albumin Cancelled, Globulin Cancelled, Albumin/Globulin Ratio Cancelled 03/02/18 05:35: Sodium 140, Potassium 4.0, Chloride 105, Carbon Dioxide 29.0, Anion Gap 6, BUN 15, Creatinine 0.83, Estim Creat Clear Calc 65.12, Est GFR ( MDRD) Af Amer 115, Est GFR (MDRD) Non-Af 95, BUN/Creatinine Ratio 18.1, Glucose 104, Calcium 8.7, Total Bilirubin 0.40, AST 26, ALT 21, Alkaline Phosphatase 102 , Total Protein 6.6, Albumin 2.8 L, Globulin 3.8, Albumin/Globulin Ratio 0.7 L 03/03/18 05:15: Sodium 142, Potassium 3.8, Chloride 106, Carbon Dioxide 28.0, Anion Gap 8, BUN 16, Creatinine 0.82, Estim Creat Clear Calc 65.92, Est GFR ( MDRD) Af Amer 117, Est GFR (MDRD) Non-Af 96, BUN/Creatinine Ratio 19.5, Glucose 116 H, Calcium 8.4 L 03/03/18 05:15: WBC 7.3, RBC 4.31 L, Hgb 13.8, Hct 41.9, MCV 97.2 H, MCH 32.0, MCHC 32.9, RDW 11.9, RDW Differential 42.6, Plt Count 211, MPV 10.5 03/03/18 05:15: PT 13.0, INR 1.0, APTT 33.0 Current Medications Aspirin (Aspirin, Baby) 81 mg PO DAILYCM [facility] Last Admin: 03/03/18 09:53 Dose: 81 mg Enoxaparin Sodium (Lovenox) 40 mg SC DAILY@1000 [facility] Last Admin: 03/03/18 09:55 Dose: Not Given Galantamine Hydrobromide (Razadyne) 12 mg PO BID [facility] Last Admin: 03/03/18 09:53 Dose: 12 mg Sodium Chloride () 250 mls @ 15 mls/hr IV .[id number] PRN PRN Reason: SALINE FLUSH Magnesium Hydroxide (Milk Of Magnesia) 30 ml PO DAILY PRN PRN PRN Reason: Constipation Metoprolol Tartrate (Lopressor (Beta Pattie)) 50 mg PO DAILY [facility] Last Admin: 03/03/18 09:53 Dose: 50 mg Nortriptyline HCl (Pamelor) 50 mg PO QHS [facility] Last Admin: 03/02/18 22:53 Dose: 50 mg Nutritional Formula (Lactose Free) (Ensure Enlive) 120 ml PO 4X/DAY [facility] Last Admin: 03/03/18 09:57 Dose: 120 ml Sodium Chloride () 5 - 30 ml IV UD PRN PRN Reason: SALINE FLUSH Tamsulosin HCl (Flomax) 0.4 mg PO DAILY@1730 [facility] Last Admin: 03/02/18 19:25 Dose: 0.4 mg Medical Necessity - Tobacco Use Smoking Status: Never smoker Tobacco Use: Chew Assessment/Plan All Active Problems Urinary retention (Acute) 1. Urinary retention: * Likely due to BPH. * Started on Flomax * states he urinating very well. * follow up with urology in 1-2 months. 2. Elevated troponin * Patient was without cardiac symptoms, therefore, I do not know why it was ever checked in the first place without any clear indication * No prior troponins to compare to see if patient has chronically elevated troponins * Check an echocardiogram and if evidence of cardiac dysfunction then may need to consult cardiology or perform stress test. * Patient is on aspirin. * Echo shows EF of 53% * patient and his declined stress test * I told him I would like to know if he does have CAD with the stress, as if he does, it could lead to additional testing. He continues to decline and understands the risks 3. Lower extremity edema * Duplex negative * involves only his feet * ABIs ok * albumin low * recommend supplements and keeping feet up when at rest (has dependent rubor) 4. Tachycardia * appears sinus * improved. DC home. Pt and family do not want rehab nor HHC.
--- NOTE | 2018-03-03 11:14 | PCM.DC ---
- Discharge Diagnoses Current Active Problems: Current Active and Chronic Problems Urinary retention (Acute) You will use the following diet at home:: Cardiac Your food should be the consistency of: Regular Your liquids should be the consistency of: Regular/Thin Discharge Activity: Return to Normal Activity Call your doctor if you observe: Fever of 101 or Higher, Shortness of breath, Fainting spells Allergies/Adverse Reactions: Allergies No Known Allergies Allergy (Verified 02/28/18 17:44) Medications to take at Discharge Aspirin [Aspirin, Baby] 81 mg PO DAILY 02/28/18 Furosemide [Lasix] 20 mg PO DAILY 02/28/18 Galantamine HBr [Galantamine ER] 24 mg PO DAILY 02/28/18 Multivitamin [Daily Multiple Vitamin] 1 tab PO DAILY 02/28/18 Nortriptyline HCl 50 mg PO QHS 02/28/18 Potassium Chloride [K-Dur] 10 meq PO DAILY 02/28/18 Ensure Enlive 120 ml PO TIDCM #90 liquid 03/03/18 Metoprolol Tartrate [Lopressor (beta marley)] 50 mg PO DAILY #60 tab 03/03/18 Tamsulosin HCl [Flomax] 0.4 mg PO DAILY@1730 #30 cap 03/03/18 The following prescriptions were given: Metoprolol Tartrate [Lopressor (beta marlye)] 50 mg PO DAILY #60 tab Tamsulosin HCl [Flomax] 0.4 mg PO DAILY@1730 #30 cap Ensure Enlive 120 ml PO TIDCM #90 liquid Primary Care Physician: Akshat Earl Chi, MD [Primary Care Provider] - Within 1 Week Please Follow Up With: Harvinder Ramierz MD When: 4-6 weeks Proposed Discharge Date: 03/03/18
--- NOTE | 2018-03-03 11:18 | DS.PCM_ITS ---
Discharge Date and Diagnosis - Problem List Patient Problems: Active and Suspected Problems Protein malnutrition (Acute) Elevated troponin (Acute) Tachycardia (Acute) Urinary retention (Acute) Date of Admission: 02/28/18 Date of Discharge: 03/03/18 - Primary Discharge Diagnosis Active and Suspected Problems Protein malnutrition (Acute) Elevated troponin (Acute) Tachycardia (Acute) Urinary retention (Acute) Hospital Course and Treatment Imaging Results: Clinical Impression(s) from Imaging Studies Chest X-Ray 02/28/18 18:06 IMPRESSION: No acute thoracic pathology. Electronically Signed: Farooq Orlando, at 18:28 EDT Tel , Service support , Operations: None Procedures: None Summary of Care Provided: The patient is a 78 year old M presents with urinary retention and lower extremity edema. 1. Urinary retention: * Likely due to BPH. * Started on Flomax * states he urinating very well. * follow up with urology in 1-2 months. 2. Elevated troponin * Patient was without cardiac symptoms, therefore, I do not know why it was ever checked in the first place without any clear indication * No prior troponins to compare to see if patient has chronically elevated troponins * Patient is on aspirin. * Echo shows EF of 53% * patient and his declined stress test * I told him I would like to know if he does have CAD with the stress, as if he does, it could lead to additional testing. He continues to decline and understands the risks 3. Lower extremity edema * Duplex negative * involves only his feet * ABIs ok * albumin low * recommend supplements and keeping feet up when at rest (has dependent rubor) 4. Tachycardia * appears sinus * improved with metoprolol. Home. He and family declined SNF and C. Follow up with PCP in 1-2 weeks.[] Discharge Diet: Low fat/ Low Cholesterol Discharge Activity: Return to Normal Activity Call your doctor if you observe: Fever of 101 or Higher, Shortness of breath, Fainting spells Home Medications: Medications to take at Discharge Aspirin [Aspirin, Baby] 81 mg PO DAILY 02/28/18 Furosemide [Lasix] 20 mg PO DAILY 02/28/18 Galantamine HBr [Galantamine ER] 24 mg PO DAILY 02/28/18 Multivitamin [Daily Multiple Vitamin] 1 tab PO DAILY 02/28/18 Nortriptyline HCl 50 mg PO QHS 02/28/18 Potassium Chloride [K-Dur] 10 meq PO DAILY 02/28/18 Ensure Enlive 120 ml PO TIDCM #90 liquid 03/03/18 Metoprolol Tartrate [Lopressor (beta marley)] 50 mg PO DAILY #60 tab 03/03/18 Tamsulosin HCl [Flomax] 0.4 mg PO DAILY@1730 #30 cap 03/03/18 Following Prescrptions Were Given to Patient: Metoprolol Tartrate [Lopressor (beta marley)] 50 mg PO DAILY #60 tab Tamsulosin HCl [Flomax] 0.4 mg PO DAILY@1730 #30 cap Ensure Enlive 120 ml PO TIDCM #90 liquid Primary Care Physician: Akshat Earl Chi, MD [Primary Care Provider] - Within 1 Week Please Follow Up With: Harvinder Ramirez MD When: 4-6 weeks Disposition: Home Minutes spent on discharge:: 35 Patient Condition:: Fair Medical Necessity - Tobacco Use Smoking Status: Never smoker Tobacco Use: Chew Meaningful Use Info Meaningful Use Diagnoses (Choose all that apply): None applicable Code Visit Inpatient E&M: 75790 Disch Hosp
== END 2018-03-03 11:26 | disposition home or self-care (01) ==
LOC: ED 18:34 → PCU 19:57
PROVIDERS: Admitting Provider Internal Medicine; Emergency Provider Emergency Medicine; Family Provider Family Medicine Geriatric Medicine; PCP Family Medicine Geriatric Medicine
DX: R33.9 Retention of urine, unspecified (principal); R60.0 Localized edema; R00.0 Tachycardia, unspecified; E46 Unspecified protein-calorie malnutrition; Z68.27 Body mass index [BMI] 27.0-27.9, adult; Z79.82 Long term (current) use of aspirin; Z79.899 Other long term (current) drug therapy; M79.89 Other specified soft tissue disorders; R06.09 Other forms of dyspnea; E87.6 Hypokalemia; F03.90 Unspecified dementia, unspecified severity, without behavioral disturbance, psychotic disturbance, mood disturbance, and anxiety; E44.0 Moderate protein-calorie malnutrition; R94.31 Abnormal electrocardiogram [ECG] [EKG]; R79.89 Other specified abnormal findings of blood chemistry; R53.1 Weakness; I49.3 Ventricular premature depolarization; R06.02 Shortness of breath; F17.220 Nicotine dependence, chewing tobacco, uncomplicated
CPT/HCPCS: 36415; 51702; 71045; 80048; 80053; 81001; 83880; 84484; 85025; 85027; 85610; 85730; 93005; 93306; 93922; 93970; 96372; 97110; 97162; 97165; 97802; 99218; 99285; 99406; A4216; G0378

== ENCOUNTER → 2018-03-08 16:41 | Outpatient (CLI) | payer MEDICARE, SELFPAY ==
[2018-03-08 17:39] LABS: Anion Gap 7 (5-15); BUN 13 mg/dL (7-18); BUN/Creat Ratio 15.3 RATIO (10-20); Calcium,Total 9.2 mg/dL (8.5-10.1); Chloride 106 mmol/L (98-107); Creatinine, Serum 0.85 mg/dL (0.70-1.30); EST Glomerular Filtration Rate 92 mL/min (>60); Est Glom Filt Rate - Afr Amer 112 mL/min (>60); Glucose 109 mg/dL (74-106); Potassium 4.4 mmol/L (3.5-5.1); Sodium Level 140 mmol/L (136-145)
== END ==
PROVIDERS: Family Provider Family Medicine Geriatric Medicine; PCP Family Medicine Geriatric Medicine; Visit Provider Family Medicine Geriatric Medicine
DX: R60.9 Edema, unspecified (principal)
CPT/HCPCS: 36415; 80048

== ENCOUNTER 2018-04-11 13:01 | Observation (INO) | payer MEDICARE, MEDICAID, SELFPAY ==
[2018-04-04 14:05] VITALS: BP 125/77; PULSE 66; RESP 18; TEMP 36.6; O2SAT 93; BMI 27.3
--- NOTE | 2018-04-04 14:11 | EKG12_ITS ---
Test Reason : Blood Pressure : / mmHG Vent. Rate : 059 BPM Atrial Rate : 059 BPM P-R Int : 190 ms QRS Dur : 116 ms QT Int : 420 ms P-R-T Axes : 055 -09 022 degrees QTc Int : 415 ms Sinus bradycardia Incomplete left bundle branch block Abnormal ECG Confirmed by VEDA JEAN BAPTISTE, OTTO ([id number]), subeditor ADRIANNE AL ([id number]) on 04/05/2018 12:02:19 PM Referred By: Harvinder Ramirez Confirmed By:OTTO MCCOLLUM MD
[2018-04-11] VITALS (9 sets, daily range): BP systolic 98–145; BP diastolic 60–93; PULSE 58–73; RESP 14–18; TEMP 36–36.9; O2SAT 94–100; BMI 27.3
--- NOTE | 2018-04-11 10:55 | PROS_PTH ---
PATIENT: BARBRA RAMIREZ LOC: [facility] U#:[id number] AGE/SX: 78/M ROOM: [facility] [place] RE04/11/[address]: Dr. Harvinder Ramirez MD : 1940 BED: 1 DIS: 04/12/2018 SPEC #: [id number] RECD: 04/11/18 15:17 STATUS: SHARLA GALLEGOS #: [id number] ELYSIA: 04/11/18 10:[address]: Harvinder Ramirez DEPT: SURGICAL PATHOLOGY RECD BY: Jc Vitale ENTERED: 04/12/18 10:14 SP TYPE: TURP OTHR DR: Dr. Akshat Earl MD Tissues: Prostate, NOS Procedures: Surgery Specimen Level IV HEADER OPERATION: Cysto, transurethral resection prostate PRE-OP DIAGNOSIS: BPH with obstruction TISSUE SUBMITTED: Prostate pieces MICROSCOPIC DIAGNOSIS Prostate pieces, TUR: Benign prostatic hyperplasia, predominantly stromal type. Chronic inflammation. SJ:watson 04/13/18 MICROSCOPIC DESCRIPTION Slides are reviewed. GROSS DESCRIPTION Received is one container labeled with the patient's name and designated prostate pieces. The specimen consists of multiple irregular fragments of pink-dennis, rubbery, soft tissue that in aggregate weigh 5 gm and measure in aggregate 3 x 3 x 1 cm. The entire specimen is submitted in four cassettes. / ILIANA:watson 04/12/18 TC:5 CPT: 78569
[2018-04-11] MEDS: Cefazolin 2 GM in 0.9% Normal Saline 100 ML IV (11:09)
--- NOTE | 2018-04-11 11:50 | OP.PCM_ITS ---
Report of Operation Date of Procedure: 04/11/18 Pre-Operative Diagnosis: BPH with urinary retention Post-Operative Diagnosis: Same Surgery/Procedure Performed:: Transurethral resection of the prostate Description of Surgical Findings:: 78-year-old male with history of retention of urine needing a catheter does have a slightly enlarged prostate for short in length today he comes to the operating room for a transurethral resection of the prostate to alleviate his bladder outlet obstruction. 78-year-old male with a history of BPH and obstruction has been in urinary retention requiring a catheter is not been able to urinate even with Flomax so this point organ to proceed with a transurethral resection of the prostate to alleviate the blockage. Reviewed with the patient has family the risks of surgery including the rare risk of incontinence, bleeding infection risk of anesthesia. Procedure note patient was taken back to the operating room after smooth induction of general anesthesia LMA was placed a MICHELLE Watson and anesthesiologist Dr. Pandya, the penis and testicles are prepped and draped in usual sterile fashion went into the bladder with a 26 Ukrainian continuous flow resectoscope and then switched over to the small loop on inspection he had very short length prostate with obstructive bladder was smooth no tumors or stones of the left and right uterus normal position I then pulled back to the sphincter identify the sphincter and then pulled back to the bladder neck I then start doing resection of the prostate muscle tissue a lateral tissue no median lobe resected the right lateral lobe of the prostate resected the left lobe of the prostate came back to the verumontanum and the sphincter area very carefully resected the apical tissue near the prostate I then elect out and got all the chips out of the bladder obtain hemostasis with pinpoint cautery. 22 Ukrainian catheter was placed into the bladder was put this on continuous bladder irrigation and the urine was clear patient medically is currently being reversed. Type of Anesthesia:: General Drains: 22fr 3 way - Admit VTE Documentation VTE Present on Admission: No VTE Mechan Device Prophylaxis: SCD's VTE Pharm Prophylaxis ordered?: No Reason prophylaxis not ordered:: Treatment Not Indicated
[2018-04-11] MEDS: 0.9% Normal Saline 1,000 ML 75 ML IV ×2 (12:41→22:03)
[2018-04-11] MEDS: Tamsulosin HCl 0.4 MG Capsule PO (17:13)
[2018-04-11] MEDS: Acetaminophen 325 MG Tablet PO (17:13)
[2018-04-11] MEDS: Docusate Sodium 100 MG Capsule PO (21:58)
[2018-04-11] MEDS: Ciprofloxacin 500 MG Tablet PO (21:58)
[2018-04-11] MEDS: Nortriptyline 25 MG Capsule 50 MG PO (21:58)
[2018-04-11] MEDS: Galantamine Hydrobromide 4 MG Tablet 12 MG PO (21:59)
[2018-04-12 02:53] VITALS: BP 135/83; PULSE 77; RESP 16; TEMP 36.9; O2SAT 100
--- NOTE | 2018-04-12 07:50 | DCINST_ITS ---
Discharge Diet: Light diet - advance as tolerated Call your doctor if your incision/area has: Continuous Slow Oozing, Sudden Increased Bleeding, Increased Pain/ Swelling, Increased Redness, Foul Smelling Discharge, Swelling at the incision site Instructions: Transurethral Resection of the Prostate (TURP): Home Recovery Allergies/Adverse Reactions: Allergies No Known Allergies Allergy (Verified 04/04/18 13:45) Medications to take at Discharge Aspirin [Aspirin, Baby] 81 mg PO DAILY 02/28/18 Furosemide [Lasix] 20 mg PO DAILY 02/28/18 Galantamine HBr [Galantamine ER] 24 mg PO DAILY 02/28/18 Multivitamin [Daily Multiple Vitamin] 1 tab PO DAILY 02/28/18 Nortriptyline HCl 50 mg PO QHS 02/28/18 Potassium Chloride [K-Dur] 10 meq PO DAILY 02/28/18 Ensure Enlive 120 ml PO TIDCM #90 liquid 03/03/18 Metoprolol Tartrate [Lopressor (beta marley)] 50 mg PO DAILY #60 tab 03/03/18 Tamsulosin HCl [Flomax] 0.4 mg PO DAILY@1730 #30 cap 03/03/18 Ciprofloxacin [Cipro] 500 mg PO BID #14 tab 04/12/18 The following prescriptions were given: Ciprofloxacin [Cipro] 500 mg PO BID #14 tab Primary Care Physician: Akshat Earl Chi, MD [Primary Care Provider] - Test Results: Test results from this visit will be discussed in further detail at your follow- up appointment, if applicable. Please Follow Up With: Harvinder Ramirez MD When: in 2 weeks, please call to make an appointment.
[2018-04-12 08:15] VITALS: BP 105/61; PULSE 80; RESP 18; TEMP 36.7; O2SAT 97
[2018-04-12 08:16] VITALS: PULSE 75
[2018-04-12] MEDS: Docusate Sodium 100 MG Capsule PO (08:16)
[2018-04-12] MEDS: Pantoprazole Sodium 40 MG Tablet PO (08:16)
[2018-04-12] MEDS: Metoprolol Tartrate 50 MG Tablet PO (08:16)
[2018-04-12] MEDS: Ciprofloxacin 500 MG Tablet PO (08:16)
[2018-04-12] MEDS: Furosemide 20 MG Tablet PO (08:17)
[2018-04-12] MEDS: Galantamine Hydrobromide 4 MG Tablet 12 MG PO (08:17)
[2018-04-12] MEDS: Multivitamins,Therapeutic Tablet 1 TABLET PO (08:18)
[2018-04-12 13:35] VITALS: BP 102/65; PULSE 66; RESP 18; TEMP 36.8; O2SAT 96
== END 2018-04-12 13:25 | disposition home or self-care (01) ==
LOC: SDC 16:43 → MS3 04-12 06:53
PROVIDERS: Admitting Provider Urology; Family Provider Family Medicine Geriatric Medicine; PCP Family Medicine Geriatric Medicine; Visit Provider Urology
PROC: 0V908ZZ Drainage of Prostate, Via Natural or Artificial Opening Endoscopic (ICD-10-PCS; CPT 52450; principal; 2018-04-11 10:45)
DX: N40.1 Benign prostatic hyperplasia with lower urinary tract symptoms (principal); N13.8 Other obstructive and reflux uropathy; Z79.899 Other long term (current) drug therapy; Z79.82 Long term (current) use of aspirin; I44.7 Left bundle-branch block, unspecified; R00.1 Bradycardia, unspecified; I10 Essential (primary) hypertension; G25.81 Restless legs syndrome
CPT/HCPCS: 00914; 52601; 88305; 93005; 96360; 96361; 99218; 99406; J7030; J7120; G0378; G0379; J2405

== ENCOUNTER → 2018-08-07 10:18 | Outpatient (CLI) | payer MEDICARE, MEDICAID, SELFPAY ==
[2018-08-07 12:30] LABS: Absolute Lymphocyte Count 3.13 X10^3/ul (0.83-4.51); Absolute Neutrophil Count 2.9 X10^3/uL (2.0-7.7); Basophil# 0.03 X10^3/uL; Basophil% 0.4 % (0-1); Eosinophil# 0.13 X10^3/uL; Eosinophils% 1.9 % (0-5); Hematocrit 47.6 % (40-54); Hemoglobin 15.9 g/dl (13.0-16.5); Lymphocyte # 3.13 X10^3/ul (4.0); Lymphocyte % 45.3 % (19-41); Mean Corp Hgb Conc 33.4 g/gl (32-36); Mean Corpuscular Hgb 31.9 pg (27.0-32.0); Mean Corpuscular Volume 95.6 fL (80-94); Mean Platelet Vol. 11.2 fl (6.2-12.0); Monocyte# 0.72 X10^3/uL; Monocyte% 10.4 % (0-10); Neutrophil # 2.89 X10^3/uL (2.7-7.7); Neutrophil % 41.9 % (47-70); Platelet Count 176 K/mm3 (150-450); RBC Distribution Width CV 12.9 % (11.6-14.6); RBC Distribution Width SD 44.7 fl (35.1-43.9); Red Blood Count 4.98 M/mm3 (4.6-6.2); White Blood Count 6.9 K/mm3 (4.4-11.0)
[2018-08-07 12:32] LABS: POSITIVE COUNT NO; POSITIVE DIFFERENTIAL NO; POSITIVE MORPHOLOGY NO
[2018-08-07 12:53] LABS: AST(SGOT) 37 U/L (15-37); Alanine Aminotransfer ALT/SGPT 42 U/L (16-61); Albumin, Serum 3.7 g/dL (3.2-5.0); Alkaline Phosphatase 82 U/L (45-117); Anion Gap 10 (5-15); BUN 14 mg/dL (7-18); BUN/Creat Ratio 15.9 RATIO (10-20); Calcium,Total 9.1 mg/dL (8.5-10.1); Chloride 106 mmol/L (98-107); Cholesterol 155 mg/dL (200); Creatinine, Serum 0.88 mg/dL (0.70-1.30); EST Glomerular Filtration Rate 88 mL/min (>60); Est Glom Filt Rate - Afr Amer 107 mL/min (>60); Globulin 3.8 g/dL (2.2-4.2); Glucose 83 mg/dL (74-106); High Density Lipoprotein 45 mg/dL; Potassium 3.8 mmol/L (3.5-5.1); Protein, Total 7.5 g/dL (6.4-8.2); Sodium Level 140 mmol/L (136-145); Triglycerides 217 mg/dL; Very Low Density Lipoprotein 43 mg/dL (5-40)
[2018-08-07 12:59] LABS: Vitamin D,25 Hydroxy 53.4 ng/mL (29.95-100.01)
== END ==
PROVIDERS: Family Provider Family Medicine Geriatric Medicine; PCP Family Medicine Geriatric Medicine; Visit Provider Family Medicine Geriatric Medicine
DX: E55.9 Vitamin D deficiency, unspecified (principal); E78.5 Hyperlipidemia, unspecified; R53.83 Other fatigue
CPT/HCPCS: 36415; 80053; 80061; 82306; 84443; 85025

== ENCOUNTER → 2019-02-14 08:43 | Outpatient (CLI) | payer MEDICARE, MEDICAID, SELFPAY ==
[2019-02-14 12:09] LABS: Absolute Lymphocyte Count 3.45 X10^3/ul (0.83-4.51); Absolute Neutrophil Count 3.1 X10^3/uL (2.0-7.7); Basophil# 0.02 X10^3/uL; Basophil% 0.3 % (0-1); Eosinophils% 2.6 % (0-5); Hematocrit 48.6 % (40-54); Hemoglobin 16.7 g/dl (13.0-16.5); Lymphocyte # 3.45 X10^3/ul (4.0); Lymphocyte % 44.5 % (19-41); Mean Corp Hgb Conc 34.4 g/gl (32-36); Mean Corpuscular Volume 93.1 fL (80-94); Mean Platelet Vol. 11.1 fl (6.2-12.0); Monocyte# 0.95 X10^3/uL; Monocyte% 12.2 % (0-10); Neutrophil # 3.12 X10^3/uL (2.7-7.7); Neutrophil % 40.1 % (47-70); Platelet Count 206 K/mm3 (150-450); RBC Distribution Width CV 12.2 % (11.6-14.6); RBC Distribution Width SD 41.5 fl (35.1-43.9); Red Blood Count 5.22 M/mm3 (4.6-6.2); White Blood Count 7.8 K/mm3 (4.4-11.0)
[2019-02-14 12:20] LABS: POSITIVE COUNT NO; POSITIVE DIFFERENTIAL NO; POSITIVE MORPHOLOGY NO
[2019-02-14 12:51] LABS: ALB/GLOB Ratio 0.8 RATIO (0.9-2.4); AST(SGOT) 43 U/L (15-37); Alanine Aminotransfer ALT/SGPT 53 U/L (16-61); Albumin, Serum 3.5 g/dL (3.2-5.0); Alkaline Phosphatase 93 U/L (45-117); Anion Gap 8 (5-15); BUN 16 mg/dL (7-18); BUN/Creat Ratio 16.9 RATIO (10-20); Calcium,Total 8.9 mg/dL (8.5-10.1); Chloride 106 mmol/L (98-107); Cholesterol 150 mg/dL (200); Creatinine, Serum 0.95 mg/dL (0.70-1.30); EST Glomerular Filtration Rate 81 mL/min (>60); Est Glom Filt Rate - Afr Amer 99 mL/min (>60); Globulin 4.2 g/dL (2.2-4.2); Glucose 89 mg/dL (74-106); High Density Lipoprotein 44 mg/dL; Potassium 3.7 mmol/L (3.5-5.1); Protein, Total 7.7 g/dL (6.4-8.2); Sodium Level 141 mmol/L (136-145); Thyroid Stim Hormone (TSH) 2.18 uIU/mL (0.358-3.74); Triglycerides 147 mg/dL; Very Low Density Lipoprotein 29 mg/dL (5-40)
[2019-02-14 15:00] LABS: Vitamin D,25 Hydroxy 22.5 ng/mL (29.95-100.01)
== END ==
PROVIDERS: Family Provider Family Medicine Geriatric Medicine; PCP Family Medicine Geriatric Medicine; Visit Provider Family Medicine Geriatric Medicine
DX: E55.9 Vitamin D deficiency, unspecified (principal); E78.5 Hyperlipidemia, unspecified; R53.83 Other fatigue
CPT/HCPCS: 36415; 80053; 80061; 82306; 84443; 85025

== ENCOUNTER → 2019-08-15 12:00 | Outpatient (CLI) | payer MEDICARE, MEDICAID, SELFPAY ==
[2018-05-16 10:14] VITALS: BMI 27.6
[2019-08-15 12:39] LABS: Absolute Neutrophil Count 3.5 X10^3/uL (2.0-7.7); Basophil# 0.05 X10^3/uL; Basophil% 0.6 % (0-1); Eosinophil# 0.17 X10^3/uL; Eosinophils% 1.9 % (0-5); Hematocrit 49.4 % (40-54); Hemoglobin 16.4 g/dL (13.0-16.5); Lymphocyte % 49.2 % (19-41); Mean Corp Hgb Conc 33.2 g/dL (32-36); Mean Corpuscular Volume 96.3 fL (80-94); Mean Platelet Vol. 11.3 fl (6.2-12.0); Monocyte# 0.73 X10^3/uL; Monocyte% 8.4 % (0-10); NRBC Flagged by Analyzer 0 % (0-5); Neutrophil # 3.47 X10^3/uL (2.7-7.7); Neutrophil % 39.7 % (47-70); Platelet Count 193 K/mm3 (150-450); RBC Distribution Width CV 12.6 % (11.6-14.6); RBC Distribution Width SD 45.3 fl (35.1-43.9); Red Blood Count 5.13 M/mm3 (4.6-6.2); White Blood Count 8.7 K/mm3 (4.4-11.0)
[2019-08-15 13:06] LABS: AST(SGOT) 37 U/L (15-37); Alanine Aminotransfer ALT/SGPT 62 U/L (16-61); Albumin, Serum 3.7 g/dL (3.2-5.0); Alkaline Phosphatase 80 U/L (45-117); Anion Gap 6 (5-15); BUN 16 mg/dL (7-18); Chloride 108 mmol/L (98-107); Cholesterol 170 mg/dL (200); Creatinine, Serum 0.89 mg/dL (0.70-1.30); EST Glomerular Filtration Rate 88 mL/min (>60); Est Glom Filt Rate - Afr Amer 106 mL/min (>60); Globulin 3.7 g/dL (2.2-4.2); Glucose 97 mg/dL (74-106); High Density Lipoprotein 46 mg/dL; Potassium 3.8 mmol/L (3.5-5.1); Protein, Total 7.4 g/dL (6.4-8.2); Sodium Level 139 mmol/L (136-145); Thyroid Stim Hormone (TSH) 1.43 uIU/mL (0.358-3.74); Triglycerides 241 mg/dL; Very Low Density Lipoprotein 48 mg/dL (5-40)
[2019-08-15 13:08] LABS: Vitamin D,25 Hydroxy 23.6 ng/mL (29.95-100.01)
== END ==
PROVIDERS: Family Provider Family Medicine Geriatric Medicine; PCP Family Medicine Geriatric Medicine; Visit Provider Family Medicine Geriatric Medicine
DX: E55.9 Vitamin D deficiency, unspecified (principal); E78.5 Hyperlipidemia, unspecified; R53.83 Other fatigue
CPT/HCPCS: 36415; 80053; 80061; 82306; 84443; 85025

== ENCOUNTER 2019-09-20 23:47 | Emergency (ER) | payer MEDICARE, MEDICAID, SELFPAY ==
[2019-09-20 23:48] VITALS: BP 153/94; PULSE 67; RESP 17; TEMP 36.7; O2SAT 98; BMI 29.9
--- NOTE | 2019-09-21 00:07 | ED.VIS.GEN ---
History of Present Illness Chief Complaint: GI Bleed Informant: Patient, Family Narrative: Patient stated he has a external hemorrhoid that started bleeding tonight. He had a normal bowel movement. He denies any symptoms other than he had some bright red blood after the BM. Stated he has had a remote colonoscopy with no problems. No diarrhea. He stated his bowel movement was not particularly hard but normal. He is on a baby aspirin. Current severity is mild. It stopped on its own. - Past Medical History (1) Elevated troponin Status: Chronic (2) Incomplete left bundle branch block Status: Chronic (3) Tachycardia Status: Chronic Past Medical History - Allergies and Home Meds Allergies/Adverse Reactions: Allergies No Known Allergies Allergy (Verified 09/20/19 23:48) Primary Care Physician: Akshat Earl Chi, MD [Primary Care Provider] - Prior records reviewed: Yes Past Medical History: - - See problem list Surgical History: - - Reviewed Lives: With Family Smoking Status: Never smoker Alcohol: None Drugs: None Review of Systems General: Denies: Chills, Fever, Sweats Eyes: Denies: Visual changes - bilaterally, Diplopia ENT: Denies: Rhinorrhea, Sore throat Cardiovascular: Denies: Chest pain, Palpitations Respiratory: Denies: Dyspnea, Cough, Dyspnea on exertion Gastrointestinal: Reports: - - External hemorrhoid bleeding. Denies: Abdominal pain, Nausea, Vomiting, Diarrhea, Melena, Hematochezia Genitourinary: Denies: Dysuria, Hematuria, Frequency Musculoskeletal: Denies: Back pain, Extremity Pain Skin: Denies: Rash, Wounds Neurological: Denies: Headache, Weakness, Numbness Physical Exam Vital Signs/Narrative: Vital Signs Temp Pulse Resp BP Pulse Ox 09/20/19 23:48 98.0 F 67 17 153/94 H 98 General: Well nourished, Well developed, No Acute Distress Head: Normocephalic, Atraumatic Eyes: Perrl, EOMI ENT: Moist mucous membranes, No rhinorrhea Neck: Supple, Nontender Cardiovascular: Regular rate, Regular rhythm, No murmurs Respiratory: No distress, CTA bilaterally, Chest nontender Abdomen: Soft, Nontender, Nondistended, Normal bowel sounds Rectal: Nontender, - - Patient has a nonthrombosed external hemorrhoid with a superficial blood clot where it was bleeding. No longer bleeding at this time. Back: Nontender, Normal Inspection Extremities: Nontender, No edema Skin: Normal color, No rash Neurological: Alert, Oriented x3, Cranial nerves II-XII grossly intact, Normal Strength, Normal Sensation Psychological: Normal affect, Normal Mood Diagnostic/Tx/Re-eval - Medical Decision Making Patient reassured. He has a nonthrombosed external hemorrhoid that was bleeding. He will use MiraLAX to keep his stool soft. He will use pressure if it bleeds again. I do not feel he needs further work-up. I do not feel this is internal. We will follow-up as an outpatient ED Disposition - Plan for ED Patient: Disposition: Home or Assisted Living Diagnosis: External hemorrhoid, bleeding Instructions: Treating Hemorrhoids: Self-Care Referrals: Akshat Earl Chi, MD [Primary Care Provider] -
[2019-09-21 00:16] VITALS: RESP 17
== END 2019-09-21 00:16 | disposition home or self-care (01) ==
PROVIDERS: Emergency Provider Emergency Medicine; PCP Family Medicine Geriatric Medicine
DX: K64.4 Residual hemorrhoidal skin tags (principal); I44.7 Left bundle-branch block, unspecified; Z79.82 Long term (current) use of aspirin; Z79.899 Other long term (current) drug therapy
CPT/HCPCS: 99282

== ENCOUNTER → 2020-02-17 10:15 | Outpatient (CLI) | payer MEDICARE, MEDICAID, SELFPAY ==
[2020-02-17 11:17] LABS: Absolute Lymphocyte Count 2.91 X10^3/uL (0.83-4.51); Basophil# 0.04 X10^3/uL; Basophil% 0.6 % (0-1); Eosinophil# 0.17 X10^3/uL; Eosinophils% 2.5 % (0-5); Hematocrit 49.3 % (40-54); Hemoglobin 16.3 g/dL (13.0-16.5); Lymphocyte # 2.91 X10^3/ul (4.0); Lymphocyte % 42.1 % (19-41); Mean Corp Hgb Conc 33.1 g/dL (32-36); Mean Corpuscular Hgb 32.6 pg (27.0-32.0); Mean Corpuscular Volume 98.6 fL (80-94); Mean Platelet Vol. 11.1 fl (6.2-12.0); Monocyte# 0.77 X10^3/uL; Monocyte% 11.1 % (0-10); NRBC Flagged by Analyzer 0 % (0-5); Neutrophil % 43.4 % (47-70); Platelet Count 168 K/mm3 (150-450); RBC Distribution Width CV 12.4 % (11.6-14.6); RBC Distribution Width SD 45.1 fl (35.1-43.9); White Blood Count 6.9 K/mm3 (4.4-11.0)
[2020-02-17 11:44] LABS: Vitamin D,25 Hydroxy 33.6 ng/mL
[2020-02-17 11:51] LABS: ALB/GLOB Ratio 0.9 RATIO (0.9-2.4); AST(SGOT) 54 U/L (15-37); Alanine Aminotransfer ALT/SGPT 80 U/L (16-61); Albumin, Serum 3.6 g/dL (3.2-5.0); Alkaline Phosphatase 94 U/L (45-117); Anion Gap 6 (5-15); BUN 8 mg/dL (7-18); BUN/Creat Ratio 9.6 RATIO (10-20); Calcium,Total 9.1 mg/dL (8.5-10.1); Chloride 108 mmol/L (98-107); Cholesterol 173 mg/dL (200); Creatinine, Serum 0.84 mg/dL (0.70-1.30); EST Glomerular Filtration Rate 94 mL/min (>60); Est Glom Filt Rate - Afr Amer 113 mL/min (>60); Globulin 3.8 g/dL (2.2-4.2); Glucose 136 mg/dL (74-106); High Density Lipoprotein 50 mg/dL; Potassium 3.8 mmol/L (3.5-5.1); Protein, Total 7.4 g/dL (6.4-8.2); Sodium Level 139 mmol/L (136-145); Thyroid Stim Hormone (TSH) 1.71 uIU/mL (0.358-3.74); Triglycerides 168 mg/dL; Very Low Density Lipoprotein 34 mg/dL (5-40)
== END ==
PROVIDERS: PCP Family Medicine Geriatric Medicine; Visit Provider Family Medicine Geriatric Medicine
DX: E55.9 Vitamin D deficiency, unspecified (principal); E78.5 Hyperlipidemia, unspecified; R53.83 Other fatigue
CPT/HCPCS: 36415; 80053; 80061; 82306; 84443; 85025

== ENCOUNTER → 2020-02-26 | Outpatient (CLI) | payer MEDICARE, MEDICAID, SELFPAY ==
--- NOTE | 2020-02-26 09:23 | US_ITS ---
STUDY: ABDOMINAL ULTRASOUND - RIGHT UPPER QUADRANT REASON FOR VISIT: Male, 80 years old ABNORMAL LIVER ENZYMES TECHNIQUE: Ultrasound evaluation of the right upper quadrant was performed with real-time and static lundy-scale imaging. TECHNICAL QUALITY: Limited. Examination limited by bowel gas. COMPARISON: None. FINDINGS: Liver: The liver measures 14.7 cm. There is increased echogenicity consistent with fatty infiltration. The bile ducts are within normal limits. There is hepatic color flow. The direction of portal flow is hepatopetal. There is no demonstrated mass lesion. Gallbladder: The gallbladder is not visualized. Common Bile Duct (C.B.D.): The common bile duct measures 5 mm. Pancreas: Normal size of the head, body and tail of the pancreas. There is normal echogenicity of the pancreas. There is no demonstrated pancreatic mass or cyst. Right Kidney: Normal size of the right kidney. The right kidney measures 9.8 x 6.2 x 5.1 cm. Normal renal cortex. The right cortex measures 1.0 cm. There is no demonstrated renal mass or cyst. There is no right hydronephrosis. US/Liver IMPRESSION: Diffuse fatty infiltration of the liver, no discrete lesion Gallbladder not visualized Sonographically normal pancreas and right kidney Electronically Signed: Marlon Ashley MD at 11:08 EDT , Service support ,
== END | disposition home or self-care (01) ==
LOC: US 09:21
PROVIDERS: PCP Family Medicine Geriatric Medicine; Referring Provider Family Medicine Geriatric Medicine; Visit Provider Family Medicine Geriatric Medicine
DX: R74.8 Abnormal levels of other serum enzymes (principal)
CPT/HCPCS: 76705

== ENCOUNTER → 2020-05-12 | Outpatient (CLI) | payer MEDICARE, MEDICAID, SELFPAY ==
[2020-05-12 10:21] LABS: AST(SGOT) 61 U/L (15-37); Alanine Aminotransfer ALT/SGPT 79 U/L (16-61); Albumin, Serum 3.6 g/dL (3.2-5.0); Alkaline Phosphatase 90 U/L (45-117); Anion Gap 7 (5-15); BUN 14 mg/dL (7-18); BUN/Creat Ratio 15.6 RATIO (10-20); Calcium,Total 8.7 mg/dL (8.5-10.1); Chloride 107 mmol/L (98-107); EST Glomerular Filtration Rate 87 mL/min (>60); Est Glom Filt Rate - Afr Amer 105 mL/min (>60); Globulin 3.6 g/dL (2.2-4.2); Glucose 109 mg/dL (74-106); Potassium 3.5 mmol/L (3.5-5.1); Protein, Total 7.2 g/dL (6.4-8.2); Sodium Level 139 mmol/L (136-145)
== END | disposition home or self-care (01) ==
LOC: LAB 09:34
PROVIDERS: PCP Family Medicine Geriatric Medicine; Referring Provider Family Medicine Geriatric Medicine; Visit Provider Family Medicine Geriatric Medicine
DX: K76.0 Fatty (change of) liver, not elsewhere classified (principal)
CPT/HCPCS: 36415; 80053

== ENCOUNTER → 2020-05-16 | Outpatient (CLI) | payer MEDICARE, MEDICAID, SELFPAY ==
--- NOTE | 2020-05-16 09:21 | US_ITS ---
STUDY: ABDOMINAL ULTRASOUND - RIGHT UPPER QUADRANT REASON FOR VISIT: Male, 80 years old ABNORMAL LABS TECHNIQUE: Ultrasound evaluation of the right upper quadrant was performed with real-time and static lundy-scale imaging. TECHNICAL QUALITY: Adequate. COMPARISON: Prior study of 02/26/2020 FINDINGS: Liver: The liver measures 16.0 cm. There is increased echogenicity consistent with fatty infiltration. The bile ducts are within normal limits. There is hepatic color flow. The direction of portal flow is hepatopetal. There is no demonstrated mass lesion. Gallbladder: The gallbladder is not visualized. Common Bile Duct (C.B.D.): The common bile duct measures 4.6 mm. Pancreas: Normal size of the head, body and tail of the pancreas. There is normal echogenicity of the pancreas. There is no demonstrated pancreatic mass or cyst. Right Kidney: Normal size of the right kidney. The right kidney measures 9.8 x 5.6 x 5.3 cm. Normal renal cortex. The right cortex measures 1.4 cm. There is no demonstrated renal mass or cyst. There is no right hydronephrosis. US/Abdomen Limited IMPRESSION: Echogenic liver suggestive of steatosis. Nonvisualization of the gallbladder. Electronically Signed: Alexander Silva MD at 20:00 EDT , Service support ,
== END | disposition home or self-care (01) ==
LOC: US 09:10
PROVIDERS: PCP Family Medicine Geriatric Medicine; Referring Provider Family Medicine Geriatric Medicine; Visit Provider Family Medicine Geriatric Medicine
DX: K76.9 Liver disease, unspecified (principal)
CPT/HCPCS: 76705

== ENCOUNTER → 2020-08-17 10:59 | Outpatient (CLI) | payer MEDICARE, MEDICAID, SELFPAY ==
[2020-08-17 11:43] LABS: Absolute Lymphocyte Count 2.72 X10^3/uL (0.83-4.51); Absolute Neutrophil Count 3.5 X10^3/uL (2.0-7.7); Basophil# 0.05 X10^3/uL; Basophil% 0.7 % (0-1); Differential Indicated SCAN CRITERIA MET; Eosinophil# 0.14 X10^3/uL; Hematocrit 50.7 % (40-54); Hemoglobin 17.2 g/dL (13.0-16.5); Lymphocyte # 2.72 X10^3/ul (4.0); Lymphocyte % 38.6 % (19-41); Mean Corp Hgb Conc 33.9 g/dL (32-36); Mean Corpuscular Hgb 33.1 pg (27.0-32.0); Mean Corpuscular Volume 97.7 fL (80-94); Monocyte# 0.65 X10^3/uL; Monocyte% 9.2 % (0-10); NRBC Flagged by Analyzer 0 % (0-5); Neutrophil # 3.45 X10^3/uL (2.7-7.7); Neutrophil % 49.1 % (47-70); POSITIVE COUNT YES; RBC Distribution Width CV 12.1 % (11.6-14.6); RBC Distribution Width SD 43.8 fl (35.1-43.9); Red Blood Count 5.19 M/mm3 (4.6-6.2)
[2020-08-17 11:56] LABS: Vitamin D,25 Hydroxy 31.9 ng/mL
[2020-08-17 12:02] LABS: AST(SGOT) 49 U/L (15-37); Alanine Aminotransfer ALT/SGPT 79 U/L (16-61); Albumin, Serum 3.6 g/dL (3.2-5.0); Alkaline Phosphatase 79 U/L (45-117); Anion Gap 4 (5-15); BUN 15 mg/dL (7-18); BUN/Creat Ratio 17.8 RATIO (10-20); Calcium,Total 9.1 mg/dL (8.5-10.1); Chloride 110 mmol/L (98-107); Cholesterol 155 mg/dL (200); Creatinine, Serum 0.84 mg/dL (0.70-1.30); EST Glomerular Filtration Rate 93 mL/min (>60); Est Glom Filt Rate - Afr Amer 113 mL/min (>60); Globulin 3.7 g/dL (2.2-4.2); Glucose 94 mg/dL (74-106); High Density Lipoprotein 47 mg/dL; Potassium 3.9 mmol/L (3.5-5.1); Protein, Total 7.3 g/dL (6.4-8.2); Sodium Level 140 mmol/L (136-145); Thyroid Stim Hormone (TSH) 1.22 uIU/mL (0.358-3.74); Triglycerides 159 mg/dL; Very Low Density Lipoprotein 32 mg/dL (5-40)
[2020-08-17 12:09] LABS: Platelet Estimate ADEQUATE (ADEQ)
== END ==
PROVIDERS: PCP Family Medicine Geriatric Medicine; Visit Provider Family Medicine Geriatric Medicine
DX: E55.9 Vitamin D deficiency, unspecified (principal); E78.5 Hyperlipidemia, unspecified; R53.83 Other fatigue
CPT/HCPCS: 36415; 80053; 80061; 82306; 84443; 85025

== ENCOUNTER → 2021-02-17 10:59 | Outpatient (CLI) | payer MEDICARE, MEDICAID, SELFPAY ==
[2021-02-17 12:09] LABS: Absolute Neutrophil Count 3.8 X10^3/uL (2.0-7.7); Basophil# 0.06 X10^3/uL; Basophil% 0.7 % (0-1); Eosinophil# 0.11 X10^3/uL; Eosinophils% 1.3 % (0-5); Hematocrit 52.9 % (40-54); Hemoglobin 17.5 g/dL (13.0-16.5); Lymphocyte % 44.2 % (19-41); Mean Corp Hgb Conc 33.1 g/dL (32-36); Mean Corpuscular Hgb 32.1 pg (27.0-32.0); Mean Corpuscular Volume 97.1 fL (80-94); Mean Platelet Vol. 11.3 fl (6.2-12.0); Monocyte# 0.81 X10^3/uL; Monocyte% 9.4 % (0-10); NRBC Flagged by Analyzer 0 % (0-5); Neutrophil # 3.79 X10^3/uL (2.7-7.7); Neutrophil % 44.2 % (47-70); Platelet Count 152 K/mm3 (150-450); RBC Distribution Width CV 12.4 % (11.6-14.6); Red Blood Count 5.45 M/mm3 (4.6-6.2); White Blood Count 8.6 K/mm3 (4.4-11.0)
[2021-02-17 12:45] LABS: ALB/GLOB Ratio 1.1 RATIO (0.9-2.4); AST(SGOT) 50 U/L (15-37); Alanine Aminotransfer ALT/SGPT 65 U/L (16-61); Alkaline Phosphatase 93 U/L (45-117); Anion Gap 11 (5-15); BUN 12 mg/dL (7-18); BUN/Creat Ratio 15.1 RATIO (10-20); Calcium,Total 9.2 mg/dL (8.5-10.1); Chloride 105 mmol/L (98-107); Cholesterol 188 mg/dL (200); EST Glomerular Filtration Rate 99 mL/min (>60); Est Glom Filt Rate - Afr Amer 120 mL/min (>60); Globulin 3.6 g/dL (2.2-4.2); Glucose 84 mg/dL (74-106); High Density Lipoprotein 49 mg/dL; Potassium 4.1 mmol/L (3.5-5.1); Protein, Total 7.6 g/dL (6.4-8.2); Sodium Level 140 mmol/L (136-145); Thyroid Stim Hormone (TSH) 1.26 uIU/mL (0.358-3.74); Triglycerides 179 mg/dL; Very Low Density Lipoprotein 36 mg/dL (5-40)
[2021-02-17 13:19] LABS: Vitamin D,25 Hydroxy 27.2 ng/mL
[2021-02-17 14:51] LABS: M R Staph aureus DNA By PCR Negative (Negative); Probe Check PASS; Specimen Processing Control PASS; Staph aureus DNA By PCR NEGATIVE (Negative)
== END ==
PROVIDERS: PCP Family Medicine Geriatric Medicine; Visit Provider Family Medicine Geriatric Medicine
DX: E55.9 Vitamin D deficiency, unspecified (principal); E78.5 Hyperlipidemia, unspecified; R53.83 Other fatigue; B95.62 Methicillin resistant Staphylococcus aureus infection as the cause of diseases classified elsewhere
CPT/HCPCS: 36415; 80053; 80061; 82306; 84443; 85025; 87070; 87077; 87186; 87205; 87640

== ENCOUNTER → 2021-08-18 11:55 | Outpatient (CLI) | payer MEDICARE, MEDICAID, SELFPAY ==
[2021-08-18 12:26] LABS: Absolute Lymphocyte Count 2.98 X10^3/uL (0.83-4.51); Absolute Neutrophil Count 4.5 X10^3/uL (2.0-7.7); Basophil# 0.04 X10^3/uL; Basophil% 0.5 % (0-1); Eosinophil# 0.13 X10^3/uL; Eosinophils% 1.5 % (0-5); Hematocrit 51.9 % (40-54); Hemoglobin 17.3 g/dL (13.0-16.5); Lymphocyte # 2.98 X10^3/ul (0.83-4.51); Mean Corp Hgb Conc 33.3 g/dL (32-36); Mean Corpuscular Hgb 31.7 pg (27.0-32.0); Mean Corpuscular Volume 95.2 fL (80-94); Mean Platelet Vol. 10.4 fl (6.2-12.0); Monocyte# 0.85 X10^3/uL; NRBC Flagged by Analyzer 0 % (0-5); Neutrophil # 4.48 X10^3/uL (2.7-7.7); Neutrophil % 52.5 % (47-70); Platelet Count 190 K/mm3 (150-450); RBC Distribution Width SD 42.5 fl (35.1-43.9); Red Blood Count 5.45 M/mm3 (4.6-6.2); White Blood Count 8.5 K/mm3 (4.4-11.0)
[2021-08-18 12:44] LABS: ALB/GLOB Ratio 0.9 RATIO (0.9-2.4); AST(SGOT) 34 U/L (15-37); Alanine Aminotransfer ALT/SGPT 44 U/L (16-61); Albumin, Serum 3.8 g/dL (3.2-5.0); Alkaline Phosphatase 91 U/L (45-117); Anion Gap 9 (5-15); BUN 16 mg/dL (7-18); BUN/Creat Ratio 16.5 RATIO (10-20); Calcium,Total 9.3 mg/dL (8.5-10.1); Chloride 105 mmol/L (98-107); Cholesterol 185 mg/dL (200); Creatinine, Serum 0.97 mg/dL (0.70-1.30); EST Glomerular Filtration Rate 79 mL/min (>60); Est Glom Filt Rate - Afr Amer 95 mL/min (>60); Globulin 4.1 g/dL (2.2-4.2); Glucose 104 mg/dL (74-106); High Density Lipoprotein 47 mg/dL; Potassium 4.2 mmol/L (3.5-5.1); Protein, Total 7.9 g/dL (6.4-8.2); Sodium Level 140 mmol/L (136-145); Thyroid Stim Hormone (TSH) 1.42 uIU/mL (0.358-3.74); Triglycerides 279 mg/dL; Very Low Density Lipoprotein 56 mg/dL (5-40)
== END ==
PROVIDERS: PCP Family Medicine Geriatric Medicine; Visit Provider Family Medicine Geriatric Medicine
DX: E78.5 Hyperlipidemia, unspecified (principal); E55.9 Vitamin D deficiency, unspecified; R53.83 Other fatigue
CPT/HCPCS: 36415; 80053; 80061; 82306; 84443; 85025

== ENCOUNTER → 2021-08-24 | Outpatient (CLI) | payer MEDICARE, MEDICAID, SELFPAY ==
--- NOTE | 2021-08-24 09:40 | LES_PTH ---
PATIENT: BARBRA RAMIREZ LOC: [facility] U#:[id number] AGE/SX: 81/M ROOM: RE08/24/[address]: Dr. Akshat Earl MD : 1940 BED: DIS: 08/24/2021 SPEC #: [id number] RECD: 08/24/21 12:59 STATUS: SHARLA ROSY #: [id number] ELYSIA: 08/24/21 09:[address]: Akshat Earl Chi DEPT: SURGICAL PATHOLOGY RECD BY: Esme Pabon Tissues: Skin of external ear, NOS Procedures: Surgery Specimen Level IV HEADER OPERATION: Ear biopsy PRE-OP DIAGNOSIS: Ear lesion TISSUE SUBMITTED: Ear MICROSCOPIC DIAGNOSIS Skin of ear, biopsy: Consistent with verrucoid keratosis with focal hyperparakeratosis and fibrinopurulent material. AM:watson 08/25/2021 MICROSCOPIC DESCRIPTION Slides are reviewed. GROSS DESCRIPTION Received is one container labeled with the patient's name and not further designated. The specimen consists of an irregular fragment of light dennis soft tissue measuring 0.5 x 0.2 x 0.2 cm. The specimen is totally submitted in one cassette. / AM:watson 08/24/21 TC:2 CPT: 95653
== END | disposition home or self-care (01) ==
PROVIDERS: PCP Family Medicine Geriatric Medicine; Visit Provider Family Medicine Geriatric Medicine
DX: L98.9 Disorder of the skin and subcutaneous tissue, unspecified (principal)
CPT/HCPCS: 88305

== ENCOUNTER → 2022-02-21 | Outpatient (CLI) | payer MEDICARE, MEDICAID, SELFPAY ==
[2022-02-21 12:53] LABS: Absolute Lymphocyte Count 4.13 X10^3/uL (0.83-4.51); Absolute Neutrophil Count 3.8 X10^3/uL (2.0-7.7); Basophil# 0.05 X10^3/uL; Basophil% 0.5 % (0-1); Eosinophil# 0.23 X10^3/uL; Eosinophils% 2.5 % (0-5); Hematocrit 46.9 % (40-54); Lymphocyte # 4.13 X10^3/ul (0.83-4.51); Lymphocyte % 45.2 % (19-41); Mean Corp Hgb Conc 34.1 g/dL (32-36); Mean Corpuscular Hgb 32.9 pg (27.0-32.0); Mean Corpuscular Volume 96.3 fL (80-94); Mean Platelet Vol. 11.3 fl (6.2-12.0); Monocyte# 0.93 X10^3/uL; Monocyte% 10.2 % (0-10); NRBC Flagged by Analyzer 0 % (0-5); Neutrophil # 3.77 X10^3/uL (2.7-7.7); Neutrophil % 41.3 % (47-70); Platelet Count 195 K/mm3 (150-450); RBC Distribution Width CV 12.5 % (11.6-14.6); RBC Distribution Width SD 44.6 fl (35.1-43.9); Red Blood Count 4.87 M/mm3 (4.6-6.2); White Blood Count 9.1 K/mm3 (4.4-11.0)
[2022-02-21 13:06] LABS: Vitamin D,25 Hydroxy 39.2 ng/mL
[2022-02-21 13:38] LABS: ALB/GLOB Ratio 0.9 RATIO (0.9-2.4); AST(SGOT) 48 U/L (15-37); Alanine Aminotransfer ALT/SGPT 38 U/L (16-61); Albumin, Serum 3.4 g/dL (3.2-5.0); Alkaline Phosphatase 85 U/L (45-117); Anion Gap 7 (5-15); BUN 12 mg/dL (7-18); BUN/Creat Ratio 15.5 RATIO (10-20); Calcium,Total 9.3 mg/dL (8.5-10.1); Chloride 106 mmol/L (98-107); Cholesterol 155 mg/dL (200); Creatinine, Serum 0.77 mg/dL (0.70-1.30); EST Glomerular Filtration Rate 102 mL/min (>60); Est Glom Filt Rate - Afr Amer 124 mL/min (>60); Globulin 3.9 g/dL (2.2-4.2); Glucose 76 mg/dL (74-106); High Density Lipoprotein 47 mg/dL; Potassium 3.9 mmol/L (3.5-5.1); Protein, Total 7.3 g/dL (6.4-8.2); Sodium Level 137 mmol/L (136-145); Thyroid Stim Hormone (TSH) 1.38 uIU/mL (0.358-3.74); Triglycerides 192 mg/dL; Very Low Density Lipoprotein 38 mg/dL (5-40)
== END | disposition home or self-care (01) ==
LOC: POLAB3 09:37
PROVIDERS: PCP Family Medicine Geriatric Medicine; Visit Provider Family Medicine Geriatric Medicine
DX: R53.83 Other fatigue (principal); E78.5 Hyperlipidemia, unspecified; E55.9 Vitamin D deficiency, unspecified
CPT/HCPCS: 36415; 80053; 80061; 82306; 84443; 85025

== ENCOUNTER → 2022-08-22 | Outpatient (CLI) | payer MEDICARE, MEDICAID, SELFPAY ==
[2022-08-22 13:10] LABS: Absolute Lymphocyte Count 3.54 X10^3/uL (0.83-4.51); Absolute Neutrophil Count 3.8 X10^3/uL (2.0-7.7); Basophil# 0.06 X10^3/uL; Basophil% 0.7 % (0-1); Eosinophil# 0.26 X10^3/uL; Eosinophils% 3.1 % (0-5); Hematocrit 50.9 % (40-54); Hemoglobin 16.7 g/dL (13.0-16.5); Lymphocyte # 3.54 X10^3/ul (0.83-4.51); Lymphocyte % 41.6 % (19-41); Mean Corp Hgb Conc 32.8 g/dL (32-36); Mean Corpuscular Hgb 32.1 pg (27.0-32.0); Mean Corpuscular Volume 97.9 fL (80-94); Mean Platelet Vol. 11.8 fl (6.2-12.0); Monocyte# 0.88 X10^3/uL; Monocyte% 10.3 % (0-10); NRBC Flagged by Analyzer 0 % (0-5); Neutrophil # 3.75 X10^3/uL (2.7-7.7); Neutrophil % 44.1 % (47-70); Platelet Count 182 K/mm3 (150-450); RBC Distribution Width CV 12.3 % (11.6-14.6); RBC Distribution Width SD 44.6 fl (35.1-43.9); White Blood Count 8.5 K/mm3 (4.4-11.0)
[2022-08-22 13:25] LABS: Vitamin D,25 Hydroxy 27.9 ng/mL
[2022-08-22 13:37] LABS: ALB/GLOB Ratio 1.1 RATIO (0.9-2.4); AST(SGOT) 29 U/L (15-37); Alanine Aminotransfer ALT/SGPT 41 U/L (16-61); Albumin, Serum 3.6 g/dL (3.2-5.0); Alkaline Phosphatase 80 U/L (45-117); Anion Gap 9 (5-15); BUN 12 mg/dL (7-18); BUN/Creat Ratio 14.1 RATIO (10-20); Calcium,Total 9.1 mg/dL (8.5-10.1); Chloride 106 mmol/L (98-107); Cholesterol 163 mg/dL (200); Creatinine, Serum 0.85 mg/dL (0.70-1.30); EST Glomerular Filtration Rate 91 mL/min (>60); Est Glom Filt Rate - Afr Amer 110 mL/min (>60); Globulin 3.4 g/dL (2.2-4.2); Glucose 114 mg/dL (74-106); High Density Lipoprotein 46 mg/dL; Sodium Level 139 mmol/L (136-145); Thyroid Stim Hormone (TSH) 1.57 uIU/mL (0.358-3.74); Triglycerides 183 mg/dL; Very Low Density Lipoprotein 37 mg/dL (5-40)
== END | disposition home or self-care (01) ==
LOC: POLAB3 11:01
PROVIDERS: PCP Family Medicine Geriatric Medicine; Visit Provider Family Medicine Geriatric Medicine
DX: R53.83 Other fatigue (principal); E78.5 Hyperlipidemia, unspecified; E55.9 Vitamin D deficiency, unspecified
CPT/HCPCS: 36415; 80053; 80061; 82306; 84443; 85025

== ENCOUNTER → 2023-02-23 | Outpatient (CLI) | payer MEDICARE, MEDICAID, SELFPAY ==
[2023-02-23 15:47] LABS: Absolute Lymphocyte Count 4.02 X10^3/uL (0.83-4.51); Basophil# 0.05 X10^3/uL; Basophil% 0.6 % (0-1); Eosinophil# 0.14 X10^3/uL; Eosinophils% 1.6 % (0-5); Hematocrit 48.9 % (40-54); Hemoglobin 16.7 g/dL (13.0-16.5); Lymphocyte # 4.02 X10^3/ul (0.83-4.51); Lymphocyte % 44.6 % (19-41); Mean Corp Hgb Conc 34.2 g/dL (32-36); Mean Corpuscular Volume 96.6 fL (80-94); Mean Platelet Vol. 11.1 fl (6.2-12.0); Monocyte% 8.9 % (0-10); NRBC Flagged by Analyzer 0 % (0-5); Neutrophil # 3.99 X10^3/uL (2.7-7.7); Neutrophil % 44.1 % (47-70); Platelet Count 176 K/mm3 (150-450); RBC Distribution Width CV 12.4 % (11.6-14.6); RBC Distribution Width SD 43.8 fl (35.1-43.9); Red Blood Count 5.06 M/mm3 (4.6-6.2)
[2023-02-23 16:42] LABS: Vitamin D,25 Hydroxy 46.5 ng/mL
[2023-02-23 16:51] LABS: AST(SGOT) 31 U/L (15-37); Alanine Aminotransfer ALT/SGPT 38 U/L (16-61); Albumin, Serum 3.6 g/dL (3.2-5.0); Alkaline Phosphatase 86 U/L (45-117); Anion Gap 7 (5-15); BUN 11 mg/dL (7-18); Calcium,Total 8.8 mg/dL (8.5-10.1); Chloride 108 mmol/L (98-107); Cholesterol 167 mg/dL (200); Creatinine, Serum 0.78 mg/dL (0.70-1.30); EST Glomerular Filtration Rate 100 mL/min (>60); Est Glom Filt Rate - Afr Amer 121 mL/min (>60); Globulin 3.6 g/dL (2.2-4.2); Glucose 86 mg/dL (74-106); High Density Lipoprotein 49 mg/dL; Potassium 3.6 mmol/L (3.5-5.1); Protein, Total 7.2 g/dL (6.4-8.2); Sodium Level 141 mmol/L (136-145); Thyroid Stim Hormone (TSH) 1.24 uIU/mL (0.358-3.74); Triglycerides 157 mg/dL; Very Low Density Lipoprotein 31 mg/dL (5-40)
== END | disposition home or self-care (01) ==
LOC: LAB 14:04
PROVIDERS: PCP Family Medicine Geriatric Medicine; Referring Provider Family Medicine Geriatric Medicine; Visit Provider Family Medicine Geriatric Medicine
DX: I10 Essential (primary) hypertension (principal); E55.9 Vitamin D deficiency, unspecified
CPT/HCPCS: 36415; 80053; 80061; 82306; 84443; 85025

== ENCOUNTER → 2023-09-07 | Outpatient (CLI) | payer MEDICARE, MEDICAID, SELFPAY ==
[2023-09-07 17:44] LABS: Absolute Lymphocyte Count 2.88 X10^3/uL (0.83-4.51); Absolute Neutrophil Count 3.7 X10^3/uL (2.0-7.7); Basophil# 0.04 X10^3/uL; Basophil% 0.5 % (0-1); Eosinophil# 0.15 X10^3/uL; Hematocrit 47.5 % (40-54); Hemoglobin 16.2 g/dL (13.0-16.5); Lymphocyte # 2.88 X10^3/ul (0.83-4.51); Lymphocyte % 38.9 % (19-41); Mean Corp Hgb Conc 34.1 g/dL (32-36); Mean Corpuscular Hgb 33.3 pg (27.0-32.0); Mean Corpuscular Volume 97.7 fL (80-94); Mean Platelet Vol. 11.8 fl (6.2-12.0); Monocyte# 0.64 X10^3/uL; Monocyte% 8.6 % (0-10); NRBC Flagged by Analyzer 0 % (0-5); Neutrophil # 3.67 X10^3/uL (2.7-7.7); Neutrophil % 49.7 % (47-70); Platelet Count 177 K/mm3 (150-450); RBC Distribution Width CV 12.5 % (11.6-14.6); Red Blood Count 4.86 M/mm3 (4.6-6.2); White Blood Count 7.4 K/mm3 (4.4-11.0)
[2023-09-07 18:21] LABS: Vitamin D,25 Hydroxy 42.6 ng/mL
[2023-09-07 18:30] LABS: AST(SGOT) 23 U/L (15-37); Alanine Aminotransfer ALT/SGPT 24 U/L (16-61); Albumin, Serum 3.5 g/dL (3.2-5.0); Alkaline Phosphatase 80 U/L (45-117); Anion Gap 5 (5-15); BUN 13 mg/dL (7-18); BUN/Creat Ratio 17.2 RATIO (10-20); Calcium,Total 8.7 mg/dL (8.5-10.1); Chloride 109 mmol/L (98-107); Cholesterol 145 mg/dL (200); Creatinine, Serum 0.76 mg/dL (0.70-1.30); EST Glomerular Filtration Rate 104 mL/min (>60); Est Glom Filt Rate - Afr Amer 126 mL/min (>60); Globulin 3.5 g/dL (2.2-4.2); Glucose 92 mg/dL (74-106); High Density Lipoprotein 46 mg/dL; Potassium 3.5 mmol/L (3.5-5.1); Sodium Level 142 mmol/L (136-145); Thyroid Stim Hormone (TSH) 1.03 uIU/mL (0.358-3.74); Triglycerides 134 mg/dL; Very Low Density Lipoprotein 27 mg/dL (5-40)
== END | disposition home or self-care (01) ==
LOC: POLAB3 15:09
PROVIDERS: PCP Family Medicine Geriatric Medicine; Visit Provider Family Medicine Geriatric Medicine
DX: I10 Essential (primary) hypertension (principal); E55.9 Vitamin D deficiency, unspecified; E78.5 Hyperlipidemia, unspecified
CPT/HCPCS: 36415; 80053; 80061; 82306; 84443; 85025

== ENCOUNTER → 2024-02-27 | Outpatient (CLI) | payer MEDICARE, MEDICAID, SELFPAY ==
[2024-02-27 13:09] LABS: Absolute Lymphocyte Count 3.34 X10^3/uL (0.83-4.51); Absolute Neutrophil Count 3.8 X10^3/uL (2.0-7.7); Basophil# 0.06 X10^3/uL; Basophil% 0.7 % (0-1); Eosinophil# 0.19 X10^3/uL; Eosinophils% 2.3 % (0-5); Hematocrit 49.5 % (40-54); Hemoglobin 16.1 g/dL (13.0-16.5); Lymphocyte # 3.34 X10^3/ul (0.83-4.51); Lymphocyte % 40.5 % (19-41); Mean Corp Hgb Conc 32.5 g/dL (32-36); Mean Corpuscular Hgb 31.7 pg (27.0-32.0); Mean Corpuscular Volume 97.4 fL (80-94); Mean Platelet Vol. 10.8 fl (6.2-12.0); Monocyte# 0.83 X10^3/uL; Monocyte% 10.1 % (0-10); NRBC Flagged by Analyzer 0 % (0-5); Neutrophil % 46.2 % (47-70); Platelet Count 191 K/mm3 (150-450); RBC Distribution Width CV 12.1 % (11.6-14.6); RBC Distribution Width SD 43.8 fl (35.1-43.9); Red Blood Count 5.08 M/mm3 (4.6-6.2); White Blood Count 8.2 K/mm3 (4.4-11.0)
[2024-02-27 13:31] LABS: Vitamin D,25 Hydroxy 31.9 ng/mL
[2024-02-27 13:44] LABS: ALB/GLOB Ratio 1.1 RATIO (0.9-2.4); AST(SGOT) 25 U/L (15-37); Alanine Aminotransfer ALT/SGPT 25 U/L (16-61); Albumin, Serum 3.7 g/dL (3.2-5.0); Alkaline Phosphatase 102 U/L (45-117); Anion Gap 5 (5-15); BUN 13 mg/dL (7-18); Calcium,Total 9.5 mg/dL (8.5-10.1); Chloride 105 mmol/L (98-107); Cholesterol 133 mg/dL (200); Creatinine, Serum 0.87 mg/dL (0.70-1.30); EST Glomerular Filtration Rate 89 mL/min (>60); Est Glom Filt Rate - Afr Amer 108 mL/min (>60); Globulin 3.5 g/dL (2.2-4.2); Glucose 91 mg/dL (74-106); High Density Lipoprotein 46 mg/dL; Potassium 4.8 mmol/L (3.5-5.1); Protein, Total 7.2 g/dL (6.4-8.2); Sodium Level 139 mmol/L (136-145); Thyroid Stim Hormone (TSH) 1.11 uIU/mL (0.358-3.74); Triglycerides 201 mg/dL; Very Low Density Lipoprotein 40 mg/dL (5-40)
== END | disposition home or self-care (01) ==
LOC: LAB 12:04
PROVIDERS: PCP Family Medicine Geriatric Medicine; Referring Provider Family Medicine Geriatric Medicine; Visit Provider Family Medicine Geriatric Medicine
DX: I10 Essential (primary) hypertension (principal); E78.5 Hyperlipidemia, unspecified; E55.9 Vitamin D deficiency, unspecified
CPT/HCPCS: 36415; 80053; 80061; 82306; 84443; 85025

== ENCOUNTER → 2024-08-20 | Outpatient (CLI) | payer MEDICAID, OTHER, SELFPAY ==
[2024-08-20 13:38] LABS: Absolute Neutrophil Count 4.2 X10^3/uL (2.0-7.7); Basophil# 0.05 X10^3/uL; Basophil% 0.6 % (0-1); Eosinophil# 0.11 X10^3/uL; Eosinophils% 1.3 % (0-5); Hematocrit 49.1 % (40-54); Hemoglobin 16.8 g/dL (13.0-16.5); Lymphocyte % 38.3 % (19-41); Mean Corp Hgb Conc 34.2 g/dL (32-36); Mean Corpuscular Hgb 32.9 pg (27.0-32.0); Mean Corpuscular Volume 96.3 fL (80-94); Mean Platelet Vol. 10.5 fl (6.2-12.0); Monocyte# 0.79 X10^3/uL; Monocyte% 9.5 % (0-10); NRBC Flagged by Analyzer 0 % (0-5); Neutrophil # 4.17 X10^3/uL (2.7-7.7); Neutrophil % 49.9 % (47-70); Platelet Count 202 K/mm3 (150-450); RBC Distribution Width CV 12.1 % (11.6-14.6); RBC Distribution Width SD 43.7 fl (35.1-43.9); White Blood Count 8.4 K/mm3 (4.4-11.0)
[2024-08-20 14:15] LABS: ALB/GLOB Ratio 0.9 RATIO (0.9-2.4); AST(SGOT) 31 U/L (15-37); Alanine Aminotransfer ALT/SGPT 25 U/L (16-61); Albumin, Serum 3.6 g/dL (3.2-5.0); Alkaline Phosphatase 99 U/L (45-117); Anion Gap 4 (5-15); BUN 22 mg/dL (7-18); BUN/Creat Ratio 23.2 RATIO (10-20); Calcium,Total 9.1 mg/dL (8.5-10.1); Chloride 108 mmol/L (98-107); Creatinine, Serum 0.95 mg/dL (0.70-1.30); EST Glomerular Filtration Rate 80 mL/min (>60); Est Glom Filt Rate - Afr Amer 97 mL/min (>60); Globulin 3.8 g/dL (2.2-4.2); Glucose 94 mg/dL (74-106); Protein, Total 7.4 g/dL (6.4-8.2); Sodium Level 138 mmol/L (136-145)
[2024-08-22 00:52] LABS: Vitamin D,25 Hydroxy 36.7 ng/mL
== END | disposition home or self-care (01) ==
LOC: POLAB3 13:24
PROVIDERS: PCP Family Medicine Geriatric Medicine; Visit Provider Family Medicine Geriatric Medicine
DX: N39.0 Urinary tract infection, site not specified (principal); I10 Essential (primary) hypertension; E55.9 Vitamin D deficiency, unspecified
CPT/HCPCS: 36415; 80053; 82306; 84443; 85025; 87086; 87088

== ENCOUNTER → 2025-02-27 | Outpatient (CLI) | payer MEDICARE, MEDICAID, SELFPAY ==
[2025-02-27 11:56] LABS: Absolute Lymphocyte Count 3.36 X10^3/uL (0.83-4.51); Absolute Neutrophil Count 4.1 X10^3/uL (2.0-7.7); Basophil# 0.06 X10^3/uL; Basophil% 0.7 % (0-1); Eosinophil# 0.13 X10^3/uL; Eosinophils% 1.5 % (0-5); Hematocrit 49.7 % (40-54); Hemoglobin 16.8 g/dL (13.0-16.5); Lymphocyte # 3.36 X10^3/ul (0.83-4.51); Lymphocyte % 39.6 % (19-41); Mean Corp Hgb Conc 33.8 g/dL (32-36); Mean Corpuscular Hgb 32.6 pg (27.0-32.0); Mean Corpuscular Volume 96.5 fL (80-94); Mean Platelet Vol. 11.1 fl (6.2-12.0); Monocyte# 0.79 X10^3/uL; Monocyte% 9.3 % (0-10); NRBC Flagged by Analyzer 0 % (0-5); Neutrophil # 4.13 X10^3/uL (2.7-7.7); Neutrophil % 48.7 % (47-70); Platelet Count 164 K/mm3 (150-450); RBC Distribution Width CV 12.5 % (11.6-14.6); Red Blood Count 5.15 M/mm3 (4.6-6.2); White Blood Count 8.5 K/mm3 (4.4-11.0)
[2025-02-27 13:24] LABS: ALB/GLOB Ratio 1.3 RATIO (0.9-2.4); AST(SGOT) 37 U/L (<=37); Alanine Aminotransfer ALT/SGPT 16 U/L (<=46); Alkaline Phosphatase 102 U/L (40-129); Anion Gap 11 (5-15); BUN 20 mg/dL (4-19); BUN/Creat Ratio 19.4 RATIO (10-20); Calcium,Total 9.6 mg/dL (7.6-11.0); Carbon Dioxide 25.6 mmol/L (21.0-32.0); Chloride 102 mmol/L (98-108); Creatinine, Serum 1.03 mg/dL (0.70-1.20); EST Glomerular Filtration Rate 71 (>60); Glucose 93 mg/dL (70-99); Potassium 4.2 mmol/L (3.3-5.1); Protein, Total 7.1 g/dL (5.9-8.4); Sodium Level 138 mmol/L (133-145); Total Bilirubin 0.61 mg/dL (0.00-1.30); Vitamin D,25 Hydroxy 32.9 ng/mL (30-100)
== END | disposition home or self-care (01) ==
PROVIDERS: PCP Family Medicine Geriatric Medicine; Referring Provider Family Medicine Geriatric Medicine; Visit Provider Family Medicine Geriatric Medicine
DX: I10 Essential (primary) hypertension (principal); E55.9 Vitamin D deficiency, unspecified
CPT/HCPCS: 36415; 80053; 82306; 84443; 85025

== ENCOUNTER → 2025-08-20 | Outpatient (CLI) | payer MEDICARE, MEDICAID, SELFPAY ==
[2025-08-20 14:09] LABS: Hematocrit 46.0 % (40-54); Hemoglobin 15.8 g/dL (13.0-16.5); Immature Granulocytes Count 0.020 X10^3/uL (0.0-0.0); Mean Corp Hgb Conc 34.3 g/dL (32-36); Mean Corpuscular Volume 95.6 fL (80-94); Mean Platelet Vol. 10.6 fl (6.2-12.0); NRBC Flagged by Analyzer 0 % (0-5); Platelet Count 173 K/mm3 (150-450); RBC Distribution Width CV 12.6 % (11.6-14.6); RBC Distribution Width SD 44.7 fl (35.1-43.9); Red Blood Count 4.81 M/mm3 (4.6-6.2); White Blood Count 7.7 K/mm3 (4.4-11.0)
[2025-08-20 14:58] LABS: Vitamin D,25 Hydroxy 31.1 ng/mL (30-100)
[2025-08-20 14:59] LABS: AST(SGOT) 32 U/L (<=37); Alanine Aminotransfer ALT/SGPT 15 U/L (<=46); Albumin, Serum 4.1 g/dL (3.4-4.8); Alkaline Phosphatase 98 U/L (40-129); Anion Gap 11 (5-15); BUN 13 mg/dL (4-19); BUN/Creat Ratio 13.9 RATIO (10-20); Calcium,Total 9.4 mg/dL (7.6-11.0); Carbon Dioxide 26.3 mmol/L (21.0-32.0); Chloride 104 mmol/L (98-108); Globulin 2.9 g/dL (2.2-4.2); Glucose 102 mg/dL (70-99); Potassium 3.8 mmol/L (3.3-5.1)
[2025-08-20 21:59] LABS: Xtra Tube Kwok EXTRA TUBE
== END | disposition home or self-care (01) ==
LOC: POLAB3 13:59
PROVIDERS: PCP Family Medicine Geriatric Medicine; Visit Provider Family Medicine Geriatric Medicine
DX: R35.0 Frequency of micturition (principal); E55.9 Vitamin D deficiency, unspecified; I10 Essential (primary) hypertension
CPT/HCPCS: 36415; 80053; 82306; 84443; 85025; 87086